=== PATIENT | male | born 1945 | race Caucasian/White ===

== ENCOUNTER → 2016-07-20 | Outpatient (REF) | payer MEDICARE, OTHER ==
[~2016-07-20] MED LIST: /TAMS4CA OR; /WARF5TA OR; ACET65TA OR; ALPR1TAB3 OR; AMBI10TA OR; BISO10TA2 OR; CETI10TA OR; DIGO0.126 OR; ENAL10TA2 OR; GLUC1000 OR; LIDO5DIS EXT; OMEP20TA7 OR; OXYC40TA19 OR; OXYC80TA14 OR; PROS5TAB OR; SERT100T OR; SIMV40TA2 OR; VESICARE OR; VITA500C OR
[2016-07-20 20:02] LABS: INR 4.1
== END ==
LOC: M LAB REF 17:55
PROVIDERS: ATTEND Nurse Practitioner Family
DX: Z51.81 Encounter for therapeutic drug level monitoring (principal); Z79.01 Long term (current) use of anticoagulants

== ENCOUNTER → 2016-08-03 | Outpatient (REF) | payer MEDICARE, OTHER | LOC: M LAB REF 16:29 | PROVIDERS: ATTEND Nurse Practitioner Family | DX: I87.311 Chronic venous hypertension (idiopathic) with ulcer of right lower extremity (principal) ==

== ENCOUNTER → 2016-11-01 | Outpatient (CLI) | payer MEDICARE, OTHER ==
[~2016-11-01] MED LIST changes: +E-Z PAQUE 60% w/v SUSP 355ML BOTTLE As Ordered ONE; +E-Z-GAS II EFFERVESCENT PACKET (SODIUM BICARB./CITRIC ACID/SIMETHICONE) As Ordered ONE; +E-Z-HD 98% w/w 340GM SUSP BTL As Ordered ONE; +ISOVUE-370 76% 100ML VIAL (Q9967) As Ordered ONE
--- NOTE | 2016-11-01 09:47 | REP ---
CT NECK WITH CONTRAST: HISTORY: Dysphagia. CONTRAST: Isovue 370, 75 mL. There is calcification of the epiglottis. The naso-, rashid-, and hypopharynx, larynx and subglottic trachea are otherwise normal in appearance. The salivary and thyroid glands are normal. Small lymph nodes less than 1 cm in size are present in the internal jugular chains, posterior triangles, and submandibular areas. Atherosclerotic calcification is present at the carotid bifurcations. Degenerative change is present in the cervical spine. The lung apices are clear. The visualized sinuses are clear. IMPRESSION: There is no neck mass or adenopathy. Signed by Shivam Gastelum MD 11/01/2016 09:50 A
--- NOTE | 2016-11-01 17:25 | REP ---
ESOPHAGRAM, AIR CONTRAST: The procedure was performed under the direct supervision of Dr. Carter. A single view PA chest x-ray is submitted as a automat car attendant film. There is a unipolar pacemaker in place with the power pack in the left chest. There is cardiomegaly. The lungs are clear. Liquid barium and gas-producing granules were given in the erect position as well as liquid barium in the prone oblique positions in order to perform a double contrast esophagram examination. The oral and pharyngeal stages of deglutition are unremarkable. During esophageal transport there are tertiary waves demonstrated. There is no esophagitis, stricture, mucosal ring or hiatal hernia. Gastroesophageal reflux is not demonstrated on this examination. IMPRESSION: Esophageal dysmotility, otherwise unremarkable double contrast esophagram examination. 1 minute and 15 seconds of fluoroscopy time was utilized for this procedure. Reviewed by GABY Morton 11/02/2016 04:48 PEdited and Signed by Jaspal Carter MD 11/02/2016 05:10 P
== END ==
LOC: M RAD 08:30
PROVIDERS: ATTEND Otolaryngology
DX: R07.0 Pain in throat (principal); R13.10 Dysphagia, unspecified; K22.4 Dyskinesia of esophagus
CPT/HCPCS: 70491; 74220; Q9967

== ENCOUNTER → 2016-12-23 | Outpatient (REF) | payer MEDICARE, OTHER ==
[~2016-12-23] MED LIST changes: -E-Z PAQUE 60% w/v SUSP 355ML BOTTLE As Ordered ONE; -E-Z-GAS II EFFERVESCENT PACKET (SODIUM BICARB./CITRIC ACID/SIMETHICONE) As Ordered ONE; -E-Z-HD 98% w/w 340GM SUSP BTL As Ordered ONE; -ISOVUE-370 76% 100ML VIAL (Q9967) As Ordered ONE
[2016-12-23 13:49] LABS: BASO % 0.4 % (0.0-1.0); EOS # 0.3 K/mm3 (0.0-0.50); EOS % 3.8 % (0.0-3.0); LARGE UNSTAINED CELL # 0.1 K/mm3 (0.0-0.4); LYMPH # 1.6 K/mm3 (1.5-4.5); LYMPH % 19.1 % (24.0-44.0); MEAN CORPUSCULAR HEMOGLOBIN 29.9 pg (27.0-33.0); MEAN CORPUSCULAR HGB CONC 32.4 g/dl (32.0-36.5); MEAN CORPUSCULAR VOLUME 92.4 fl (80.0-96.0); MONO # 0.4 K/mm3 (0.0-0.8); MONO % 5.1 % (0.0-5.0); NEUTROPHILS # 5.6 K/mm3 (1.8-7.7); NEUTROPHILS % 70.7 % (36.0-66.0); PLATELET COUNT, AUTOMATED 167 k/mm3 (150-450); RED CELL DISTRIBUTION WIDTH 14.4 % (11.5-14.5); WHITE BLOOD COUNT 7.9 K/mm3 (4.0-10.0)
[2016-12-23 14:11] LABS: ERYTHROCYTE SEDIMENTATION RATE 25 mm/hr (0-20)
[2016-12-23 15:00] LABS: ANION GAP 5 MEQ/L (8-16); BLOOD UREA NITROGEN 23 MG/DL (7-18); CALCIUM LEVEL 8.5 MG/DL (8.8-10.2); CARBON DIOXIDE LEVEL 34 MEQ/L (21-32); CHLORIDE LEVEL 100 MEQ/L (98-107); CREATININE FOR GFR 0.79 MG/DL (0.70-1.30); GLOMERULAR FILTRATION RATE > 60.0 (>42); GLUCOSE, FASTING 144 MG/DL (83-110); POTASSIUM SERUM 4.5 MEQ/L (3.5-5.1); SODIUM LEVEL 139 MEQ/L (136-145)
[2016-12-23 15:01] LABS: ALBUMIN 3.9 GM/DL (3.2-5.2); ALKALINE PHOSPHATASE 62 U/L (45-117); ALT/SGPT 23 U/L (12-78); AST/SGOT 16 U/L (15-37); BILIRUBIN,TOTAL 0.4 MG/DL (0.2-1.0); TOTAL PROTEIN 6.9 GM/DL (6.4-8.2)
== END ==
LOC: M LABNEURO 13:25
PROVIDERS: ATTEND Psychiatry & Neurology Neurology
DX: R51 Headache (principal); Z79.899 Other long term (current) drug therapy

== ENCOUNTER → 2017-06-15 | Outpatient (CLI) | payer MEDICARE, OTHER ==
--- NOTE | 2017-06-15 10:02 | REP ---
CT LUMBAR SPINE WITHOUT CONTRAST: HISTORY: Back pain. COMPARISON: 12/10/2011 A diffuse disc bulge is present at the L1-2 level. There is minimal compression of the thecal sac. There is hypertrophy of the posterior articulating facets. The L1 nerves exit the neural foramina without compression. A diffuse disc bulge is present at the L2-3 level. There is hypertrophy of ligamenta flava and posterior articulating facets. These findings produce moderate central canal stenosis. There is compression of the right L2 nerve in the neural foramen. The left L2 nerve exits the neural foramen without compression. A laminectomy defect is present. The patient is status post L3 to L5 posterior spinal fusion and L3-4 laminectomy. Metal rods and pedicle screws are present. A diffuse disc bulge is present at the L3-4 level. There is hypertrophy of the ligamenta flava and posterior articulating facets. These findings produce moderate central canal stenosis. There is compression of the right L3 nerve in the neural foramen. The left L3 nerve exits the neural foramen without compression. A diffuse disc bulge is present at the L4-5 level. There is hypertrophy of the ligamenta flava and posterior articulating facets. There are 10 mm of grade 1 spondylolisthesis of L4 on L5. These findings produce mild central canal stenosis. There is compression of the L4 nerves in the neural foramina. A laminectomy defect is present. A diffuse disc bulge is present at the L5-S1 level. There is minimal compression of the thecal sac. There is hypertrophy of the posterior articulating facets. There is compression of the L5 nerves in the neural foramina. The L2-3 through L5-S1 intervertebral discs are decreased in height. Vacuum phenomenon is present at the L4-5 and L5-S1 levels. These findings are consistent with disc degeneration. There is scoliosis convex to the left. IMPRESSION: 1. The patient is status post L3 to L5 posterior spinal fusion and L2 to L4 laminectomy. 2. Diffuse disc bulge at the L1-2 level with minimal thecal sac compression. 3. Moderate central canal stenosis at the L2-3 level secondary to disc bulge, ligamentous and facet hypertrophy. 4. Moderate central canal stenosis at the L3-4 level secondary to disc bulge, ligamentous and facet hypertrophy. There is compression of the right L3 nerve in the neural foramen. 5. Mild central canal stenosis at the L4-5 level secondary to disc bulge, ligamentous and facet hypertrophy and grade 1 spondylolisthesis. There is compression of the L4 nerves in the neural foramina. 6. Diffuse disc bulge at the L5-S1 level with minimal thecal sac compression. There is compression of the L5 nerves in the neural foramina. There is no significant change compared to the previous study. Signed by Shivam Gastelum MD 06/15/2017 10:07 A
== END ==
LOC: M RAD 09:00
PROVIDERS: ATTEND Orthopaedic Surgery
DX: M54.9 Dorsalgia, unspecified (principal)

== ENCOUNTER 2017-07-04 09:06 | Inpatient (IN) | payer MEDICARE, OTHER ==
[~2017-07-04] VITALS: Ht 188 cm; Wt 109.9 kg
[~2017-07-04 09:06] MED LIST changes: +LIDOCAINE 5% (LIDODERM) PATCH TD SCH
[2017-07-04] MEDS ORDERED: LEVO75TA4 PO (09:39)
[2017-07-04] MEDS ORDERED: CRES10TA32 PO ×2 (09:39→11:01)
[2017-07-04] MEDS ORDERED: LEVO10VL IM (09:39)
[2017-07-04] MEDS ORDERED: CODE30TA3 PO (09:39)
[2017-07-04] MEDS ORDERED: TORS20TA2 PO ×2 (09:39→11:19)
[2017-07-04] MEDS ORDERED: OXYB10TA PO ×2 (09:39→11:19)
[2017-07-04] MEDS ORDERED: ACETAMINOPHEN 325 MG TAB PO ONE (09:45)
[2017-07-04 09:55] LABS: BASO % 0.2 % (0.0-1.0); EOS # 0.1 10^3/uL (0.0-0.50); EOS % 0.8 % (0.0-3.0); IMMATURE GRANULOCYTE % 0.5 % (0-0); LYMPH # 0.7 10^3/uL (1.5-4.5); LYMPH % 5.3 % (24.0-44.0); MEAN CORPUSCULAR HEMOGLOBIN 30.7 pg (27.0-33.0); MEAN CORPUSCULAR HGB CONC 33.2 g/dl (32.0-36.5); MEAN CORPUSCULAR VOLUME 92.4 fl (80.0-96.0); MONO # 0.7 10^3/uL (0.0-0.8); MONO % 5.8 % (0.0-5.0); NEUTROPHILS # 10.8 10^3/uL (1.8-7.7); NEUTROPHILS % 87.4 % (36.0-66.0); PLATELET COUNT, AUTOMATED 123 10^3/uL (150-450); WHITE BLOOD COUNT 12.3 10^3/uL (4.0-10.0)
[2017-07-04 10:04] LABS: INR 1.83
[2017-07-04 10:08] LABS: VENOUS BASE EXCESS 2.3 (-2.0-2.0); VENOUS O2 SATURATION 74.3 % (60.0-80.0); VENOUS PARTIAL PRESSURE CO2 46.8 mmHg (38.0-50.0); VENOUS PARTIAL PRESSURE O2 38.2 mmHg (30.0-50.0); VENOUS STANDARD HCO3 25.9 MEQ/L; VENOUS TOTAL CO2 29.3 MEQ/L (24.0-28.0)
[2017-07-04 10:26] LABS: ALBUMIN 3.6 GM/DL (3.2-5.2); ALBUMIN/GLOBULIN RATIO 1.09 (1.00-1.93); ALKALINE PHOSPHATASE 57 U/L (45-117); ALT/SGPT 23 U/L (12-78); ANION GAP 8 MEQ/L (8-16); AST/SGOT 19 U/L (7-37); BILIRUBIN,DIRECT 0.2 MG/DL (0.0-0.2); BILIRUBIN,TOTAL 0.7 MG/DL (0.2-1.0); BLOOD UREA NITROGEN 18 MG/DL (7-18); CALCIUM LEVEL 8.9 MG/DL (8.8-10.2); CARBON DIOXIDE LEVEL 29 MEQ/L (21-32); CHLORIDE LEVEL 101 MEQ/L (98-107); CREATININE FOR GFR 0.76 MG/DL (0.70-1.30); GLOMERULAR FILTRATION RATE > 60.0 (>42); GLUCOSE, FASTING 110 MG/DL (83-110); POTASSIUM SERUM 3.7 MEQ/L (3.5-5.1); SODIUM LEVEL 138 MEQ/L (136-145); TOTAL PROTEIN 6.9 GM/DL (6.4-8.2)
--- NOTE | 2017-07-04 10:28 | REP ---
PORTABLE CHEST: AP portable view of the chest is performed. There is streaky right basilar atelectasis/infiltrate. There is mild calcification of the thoracic aorta. There is a left single lead pacemaker. Signed by Srinath Hutton MD 07/04/2017 05:55 P
[2017-07-04 10:33] LABS: DIGOXIN LEVEL 0.2 NG/ML (0.5-2.0)
[2017-07-04] MEDS ORDERED: ACETAMINOPH W/CODEINE #3 TAB UD PO ONE (10:45)
[2017-07-04] MEDS ORDERED: MOXIFLOXACIN HCL 400 MG in APPROPRIATE DILUENT 1 EA IV ONE (10:45)
[2017-07-04] MEDS ORDERED: XANA0.5T PO (11:00)
[2017-07-04] MEDS ORDERED: DOXY100T16 PO (11:00)
[2017-07-04] MEDS ORDERED: WARF-23 PO (11:00)
[2017-07-04] MEDS ORDERED: SYNT75TA PO (11:01)
[2017-07-04] MEDS ORDERED: FLOM5CAP PO (11:01)
[2017-07-04] MEDS ORDERED: OXYC1TAB23 PO (11:01)
[2017-07-04] MEDS ORDERED: XANA1TAB PO (11:01)
[2017-07-04] MEDS ORDERED: METF750T PO (11:01)
[2017-07-04] MEDS ORDERED: BISO5TAB5 PO (11:01)
[2017-07-04] MEDS ORDERED: ALPRAZolam 0.25 MG TAB PO ONE (11:15)
[2017-07-04] MEDS ORDERED: VITA100066 PO (11:19)
[2017-07-04] MEDS ORDERED: ZONI50CA3 PO (11:19)
[2017-07-04] MEDS ORDERED: SERT-138 PO (11:19)
[2017-07-04] MEDS ORDERED: LIDO1PAD TD (11:19)
[2017-07-04] MEDS ORDERED: FINA5TAB2 PO (11:19)
[2017-07-04] MEDS ORDERED: DICY20TA PO (11:19)
[2017-07-04] MEDS ORDERED: OXYC-405 PO ×2 (11:19→12:03)
[2017-07-04] MEDS ORDERED: VITMTA PO (11:19)
[2017-07-04] MEDS ORDERED: TYLE325T5 PO (11:19)
[2017-07-04] MEDS ORDERED: MIRT15SOTA PO (11:19)
[2017-07-04] MEDS ORDERED: ENAL2.5T PO (11:19)
[2017-07-04] MEDS ORDERED: VITA10006 PO (11:19)
[2017-07-04] MEDS ORDERED: CETI10TA PO (11:19)
[2017-07-04] MEDS ORDERED: OMEP20CA3 PO (11:20)
[2017-07-04] MEDS ORDERED: ACETAMINOPHEN TAB 650MG DOSE (2X325MG) PO PRN (12:15)
[2017-07-04] MEDS ORDERED: ONDANSETRON 4MG/2ML VIAL (J2405) IV PRN (12:30)
[2017-07-04 12:55] LABS: ERYTHROCYTE SEDIMENTATION RATE 45 mm/hr (0-20)
--- NOTE | 2017-07-04 13:23 | HPE ---
DATE OF ADMISSION: 07/04/2017 PRIMARY CARE PHYSICIAN: Dimitri Keller MD VIDEO PRODUCER: Gerson Peñaloza MD NEUROLOGIST: Isac Alvarez MD PROCUREMENT INSPECTOR: Bert Dejesus MD CHIEF COMPLAINT: Fevers and cough. HISTORY OF PRESENT ILLNESS: The patient is a 71-year-old man who for the last several days has had progressively worsening fevers, chills, associated with cough with increased sputum production. He did present to an urgent care on Tuesday and was started on doxycycline without any significant improvement in his symptoms which prompted him to present to the hospital. This morning he had a high temperature at home and was increasingly confused as per his . At the present time, he is less confused. He is awake, alert and oriented times three and improved as per himself and his . He denies recent travel or other changes in his medications. PAST MEDICAL HISTORY: Atrial fibrillation status post pacemaker placement. Depression. [id number] diabetes mellitus. Obstructive sleep apnea (GRETTA) noncompliant with CPAP, but does use oxygen via nasal cannula at night. Dyslipidemia. Hypertension. Congestive heart failure (CHF). Benign prostatic hypertrophy (BPH). Overactive bladder. Dyslipidemia. Significant anxiety. Chronic osteoarthritis (OA) pain in the spine. Insomnia. Migraines headaches. Hypertension. Hypothyroidism. HOME MEDICATIONS: - doxycycline 100 mg by mouth twice a day, started on Tuesday - metformin 1500 mg every evening - torsemide 20 mg daily - dicyclomine 20 mg three times a day - enalapril 2.5 mg at bedtime - Xanax extended release 1 mg by mouth daily - Tylenol 650 mg every 4 hours as needed pain or fever - Xanax 0.5 mg every 4 hours as needed anxiety - vitamin C 1 gram daily - bisoprolol 10 mg daily - cetirizine 10 mg daily - vitamin D 1000 units daily - finasteride 5 mg daily - levothyroxine 75 mcg daily - lidocaine 5% patch three patches transdermally daily - mirtazapine 15 mg at bedtime - multivitamin one tablet daily - omeprazole 20 mg daily - oxybutynin extended release 10 mg daily - oxycodone extended release 40 mg twice a day and 80 mg in the morning - oxycodone/acetaminophen 5/325 two tablets every 6 hours as needed for pain - Crestor 10 mg at bedtime - sertraline 200 mg daily - Flomax 0.4 mg by mouth twice a day - Coumadin 5 mg daily - zonisamide 100 mg at bedtime ALLERGIES: 1. MORPHINE. 2. PENICILLIN. 3. PENICILLIN CROSS REACTORS. PAST SURGICAL HISTORY: 1. Surgery related to his osteoarthritis (OA) of the spine. 2. Bilateral hip arthroplasty. 3. Lumbar fusions. 4. Pacer placement. SOCIAL HISTORY: He denies alcohol or tobacco. He lives with his , daughter and granddaughter. FAMILY HISTORY: Noncontributory. REVIEW OF SYSTEMS: Negative other than the history of present illness. PHYSICAL EXAMINATION: Temperature T-max 102.3, pulse 137, atrial fibrillation, respiratory rate 20, blood pressure 142/79, oxygen saturation 98% on 2 liters nasal cannula. He is reportedly 88% on room air with no baseline oxygen requirement in general. He is a tired, elderly man laying face down on the stretcher. He does not appear in acute distress but does appear fatigued. HEENT: Cranial nerves II through XII are grossly intact. He has moist mucous membranes. No appreciable elevation of CVP. CARDIOVASCULAR EXAM: S1 and S2 is irregularly irregular and he is tachycardic. RESPIRATORY EXAM: He has rhonchi with scattered rales throughout. ABDOMINAL EXAM: Obese. Bowel sounds are present. The abdomen is soft. EXTREMITIES: No clubbing, cyanosis, or edema. LABORATORY STUDIES: WBC 12.3, hemoglobin 13.4, platelet count 123. Chemistry panel: Sodium 138, potassium 3.7, chloride 101, bicarb 29, BUN 18, creatinine 0.7, lactic acid 1.5. Liver function tests within normal limits. One set of cardiac enzymes is negative. BNP is slightly elevated at 1270, TSH within normal limits. Digoxin level is 0.2, INR is 1.8. Blood cultures have been drawn and are pending. Influenza swab is negative. IMAGING: The patient did have a chest x-ray which revealed slight right basilar atelectasis/infiltrate. ASSESSMENT/PLAN: This is a 71-year-old man presenting with fever and cough with radiographic findings of an infiltrate concerning for community acquired pneumonia. 1. Community acquired pneumonia. Given also the location of the right basilar infiltrate, there is some evidence for possible aspiration pneumonia given that the patient did have an episode of confusion. He was previously on doxycycline and has been transitioned to moxifloxacin which we will continue for now. I will also check a respiratory PCR panel and provide him with gentle IV fluid hydration. We will hold his home diuretics and nephrotoxic agents. The patient did have an venous blood gas which was fairly unremarkable. 2. Atrial fibrillation with rapid ventricular response (RVR). Given that he has a normal lactic acid, he does not have increased work of breathing, and does not severe sepsis and his rapid ventricular response (RVR) is likely related to uncontrolled atrial fibrillation. He did not take his bisoprolol this morning. I will provide him with a dose of it at this time. We will monitor him in the progressive care unit and trend his cardiac enzymes as well as rate control. He follows with Dr. Dejesus and he recently had a stress test completed. I will obtain recent clinic notes from Dr. Dejesus's office. The patient is anticoagulated with Coumadin. He is subtherapeutic. We will provide him 5 mg daily and monitor. He will be on antibiotics so I suspect his INR will rise. 3. Chronic pain of the spine related to osteoarthritis (OA). Continue with his OxyContin/Roxicodone regimen with lidocaine patches. This strongly controls his symptoms at home. We will hold for sedation while he is in the hospital. 4. Insomnia. Continue with mirtazapine. 5. Migraines headaches. Continue the zonisamide. 6. Anxiety. Continue with Xanax, Zoloft. 7. Hypothyroidism. Continue with Synthroid. 8. Overactive bladder. Continue Ditropan. 9. Gastroesophageal reflux disease (GERD). Continue with omeprazole. 10. Benign prostatic hypertrophy (BPH). Continue with Proscar and Flomax. 11. Vitamin D deficiency. Continue with supplementation. 12. Dyslipidemia. Continue with Crestor. 13. Hypertension. We are holding his CONCEPCION inhibitor. He is being provided beta-robin while we are attempting to rate control him. Will hold off on any further agents. We are also holding his diuretic. 14. Deep vein thrombosis (DVT) prophylaxis. He is on Coumadin. DISPOSITION: Patient is admitted to the progressive care unit. Continue to follow this patient closely.
[2017-07-04] MEDS ORDERED: oxyCODONE 40 MG CR TAB PO SCH (14:00)
[2017-07-04 16:00] VITALS: BP_SYST 115; BP_SYST 129; BP_DIAS 61; BP_DIAS 70
[2017-07-04] MEDS: LEVOTHYROXINE 75MCG TABLET (0.075MG) PO SCH (16:19)
[2017-07-04] MEDS: oxyCODONE 20 MG CR TAB PO SCH (16:20)
[2017-07-04] MEDS: FINASTERIDE 5 MG TAB PO SCH (16:21)
[2017-07-04] MEDS: oxyBUTYnin *DITROPAN XL* 5 MG TABCR PO SCH (16:21)
[2017-07-04] MEDS: OMEPRAZOLE 20 MG CAP PO SCH (16:21)
[2017-07-04] MEDS: SERTRALINE 100 MG TAB PO SCH (16:22)
[2017-07-04] MEDS: MULTIVITAMINS/MINERALS THERAP 1 TAB PO SCH (16:22)
[2017-07-04] MEDS: VITAMIN D 1,000 INTERNATIONAL UNITS TABLET PO SCH (16:22)
[2017-07-04] MEDS: ALPRAZolam 0.25 MG TAB PO PRN ×2 (16:22→21:50)
[2017-07-04] MEDS: CETIRIZINE (ZyrTEC) 10 MG TAB PO SCH (16:23)
[2017-07-04] MEDS: ASCORBIC ACID 500 MG TAB PO SCH (16:23)
[2017-07-04] MEDS: NS 1,000 ML IV SCH (16:24)
[2017-07-04] MEDS: WARFARIN SOD 5 MG TAB PO SCH (16:33)
[2017-07-04] MEDS: BISOPROLOL FUMARATE 5 MG TAB PO SCH (16:33)
[2017-07-04 20:00] VITALS: BP 123/79
[2017-07-04] MEDS ORDERED: **NOTE PATIENT COMMENT** MISC XX SCH (21:00)
[2017-07-04] MEDS: ROSUVASTATIN 10 MG TAB (CRESTOR) PO SCH (21:45)
[2017-07-04] MEDS: TAMSULOSIN 0.4 MG CAP PO SCH (21:45)
[2017-07-04] MEDS: MIRTAZAPINE 15 MG ***SOLTAB PO SCH (21:45)
[2017-07-04] MEDS: ZONISAMIDE 50 MG CAP (ZONEGRAN) PO SCH (21:46)
[2017-07-04 23:59] VITALS: BP 108/65
[2017-07-05 04:00] VITALS: BP 100/71
[2017-07-05] MEDS: **NOTE PATIENT COMMENT** MISC XX SCH (04:00)
[2017-07-05 05:47] LABS: MEAN CORPUSCULAR HEMOGLOBIN 30.8 pg (27.0-33.0); MEAN CORPUSCULAR HGB CONC 33.3 g/dl (32.0-36.5); MEAN CORPUSCULAR VOLUME 92.5 fl (80.0-96.0); PLATELET COUNT, AUTOMATED 126 10^3/uL (150-450); RED CELL DISTRIBUTION WIDTH 14.1 % (11.5-14.5); WHITE BLOOD COUNT 6.6 10^3/uL (4.0-10.0)
[2017-07-05 05:55] LABS: ANION GAP 7 MEQ/L (8-16); BLOOD UREA NITROGEN 16 MG/DL (7-18); CALCIUM LEVEL 8.6 MG/DL (8.8-10.2); CARBON DIOXIDE LEVEL 28 MEQ/L (21-32); CHLORIDE LEVEL 106 MEQ/L (98-107); CREATININE FOR GFR 0.69 MG/DL (0.70-1.30); GLOMERULAR FILTRATION RATE > 60.0 (>42); GLUCOSE, FASTING 106 MG/DL (83-110); POTASSIUM SERUM 3.7 MEQ/L (3.5-5.1); SODIUM LEVEL 141 MEQ/L (136-145)
[2017-07-05 05:59] LABS: INR 2.25
[2017-07-05] MEDS: ALPRAZolam 0.25 MG TAB PO PRN ×4 (06:17→20:45)
[2017-07-05] MEDS: PERCOCET 5MG/325MG TAB PO PRN ×2 (06:17→16:30)
[2017-07-05] MEDS: LEVOTHYROXINE 75MCG TABLET (0.075MG) PO SCH (06:17)
--- NOTE | 2017-07-05 06:18 | ECGEPIP ---
Stationary ECG Study [facility] Test Date: 2017-07-04 Pat Name: JOSUÉ FABIAN Department: Room: [place] [address] Gender: M Preconstruction Manager: william : 1945 Requested By: IJEOMA GARZA Order Number: [id number] Reading MD: Elliot Boyer Measurements Intervals [place] Rate: 112 P: AL: 0 QRS: 42 QRSD: 104 T: 47 QT: 329 QTc: 450 Interpretive Statements ATRIAL FIBRILLATION WITH RAPID VENTRICULAR RESPONSE ANTEROSEPTAL MYOCARDIAL INFARCTION, OF INDETERMINATE AGE Comparison tracing not on file Electronically Signed On 07-05-2017 6:17:58 EST by Elliot Boyer
[2017-07-05 07:50] VITALS: BP 108/62
[2017-07-05] MEDS: NS 1,000 ML IV SCH ×2 (08:00→23:15)
[2017-07-05] MEDS: oxyCODONE 20 MG CR TAB PO SCH ×3 (08:31→20:45)
[2017-07-05] MEDS: BISOPROLOL FUMARATE 5 MG TAB PO SCH (08:32)
[2017-07-05] MEDS: SERTRALINE 100 MG TAB PO SCH (08:32)
[2017-07-05] MEDS: VITAMIN D 1,000 INTERNATIONAL UNITS TABLET PO SCH (08:32)
[2017-07-05] MEDS: CETIRIZINE (ZyrTEC) 10 MG TAB PO SCH (08:32)
[2017-07-05] MEDS: ASCORBIC ACID 500 MG TAB PO SCH (08:32)
[2017-07-05] MEDS: FINASTERIDE 5 MG TAB PO SCH (08:32)
[2017-07-05] MEDS: TAMSULOSIN 0.4 MG CAP PO SCH ×2 (08:33→20:45)
[2017-07-05] MEDS: OMEPRAZOLE 20 MG CAP PO SCH (08:33)
[2017-07-05] MEDS: MULTIVITAMINS/MINERALS THERAP 1 TAB PO SCH (08:33)
[2017-07-05] MEDS: oxyBUTYnin *DITROPAN XL* 5 MG TABCR PO SCH (08:33)
[2017-07-05] MEDS ORDERED: BISOPROLOL FUMARATE 5 MG TAB PO SCH (09:00)
[2017-07-05] MEDS: MOXIFLOXACIN HCL 400 MG in APPROPRIATE DILUENT 1 EA IV SCH (10:52)
[2017-07-05 12:00] VITALS: BP 141/76
--- NOTE | 2017-07-05 12:44 | IPNPDOC ---
Date Seen The patient was seen on 07/05/17. Progress Note SUBJECTIVE: Patient is a 71 yo male, no overnight issues. Feels breathing better than yesterday, but still occasionally SOB, CASTORENA and productive sputum. No f/c/r, n/v/d, CP. Tolerating PO intake. OBJECTIVE PHYSICAL EXAMINATION: VITAL SIGNS: Please see below. GENERAL: NAD, A&OX3, Pleasant HEENT: PERRLA, throat clear, neck supple, no JVD CARDIOVASCULAR: RRR RESPIRATORY: CTA Bilaterally ABDOMINAL: soft, NT/ND normoactive bowel sounds EXTREMITIES: no edema/no calf tenderness NEUROLOGICAL: CN'S II-XII grossly intact PSYCHOLOGICAL: negative LABORATORY DATA: Please see below. MICROBIOLOGY: Please see below. DVT prophylaxis ordered?: [yes/coumadin] ASSESSMENT AND PLAN: This is a 71 yo male admitted for community acquired pneumonia and acute hypoxic respiratory failure. Showing some mild improvement in symptoms today. PROBLEMS: 1. Community acquired pneumonia. RLL pneumonia, tolerating PO intake without signs of aspiration. ? Failed outpatient therapy on Doxy, continue with Avelox. Respiratory panel negative, Influenza A&B negative, Blood cultures negative so far. No signs of sepsis, will continue with currrent treatment plan for another 24- 48 hrs. 2. Atrial fibrillation with rapid ventricular response (RVR). Better rate control with treatment of underlying disease. INR is therapeutic. Will continue to monitor. 3. Chronic pain of the spine related to osteoarthritis (OA). Continue with his OxyContin/Roxicodone regimen with lidocaine patches. This strongly controls his symptoms at home. We will hold for sedation while he is in the hospital. 4. Insomnia. Continue with mirtazapine. 5. Migraines headaches. Continue the zonisamide. 6. Anxiety/Depression. Continue with Xanax, Zoloft. No other issues. 7. Hypothyroidism. Continue with Synthroid. 8. Overactive bladder. Continue Ditropan. 9. Gastroesophageal reflux disease (GERD). Continue with omeprazole. 10. Benign prostatic hypertrophy (BPH). Continue with Proscar and Flomax. 11. Vitamin D deficiency. Continue with supplementation. 12. Dyslipidemia. Continue with Crestor. 13. Hypertension. We are holding his CONCEPCION inhibitor and diuretic (likely resume at time of discharge). He is being provided beta-robin and showing better rate control. 14. Deep vein thrombosis (DVT) prophylaxis. He is on Coumadin. DISPOSITION: Will monitor on telemetry another 24-48 hrs, then likely discharge home by or tuesday. VS, I&O, 24H, Shaggy Vital Signs/I&O Vital Signs Date Time Temp Pulse Resp B/P (MAP) Pulse Ox O2 Delivery O2 Flow Rate FiO2 07/05/17 12:00 96.6 88 19 141/76 (97) 98 Nasal Cannula 2.0 I&O- Last 24 Hours up to 6 AM 07/06/17 06:00 Intake Total 855 ml Output Total 400 ml Balance 455 ml Laboratory Data 24H LABS Laboratory Tests 2 07/04/17 15:42: Troponin I < 0.02 07/04/17 22:06: Troponin I < 0.02 07/05/17 05:16: Prothrombin Time 25.7H, Prothromb Time International Ratio 2.25, Anion Gap 7L, Glomerular Filtration Rate > 60.0, Blood Urea Nitrogen 16, Creatinine 0.69L, Sodium Level 141, Potassium Level 3.7, Chloride Level 106, Carbon Dioxide Level 28, Calcium Level 8.6L 07/05/17 05:17: Nucleated Red Blood Cells % (auto) 0.3H CBC/BMP Laboratory Tests 07/05/17 05:16 Calcium Level 8.6 L 07/05/17 05:17 Red Blood Count 3.89 L, Mean Corpuscular Volume 92.5, Mean Corpuscular Hemoglobin 30.8, Mean Corpuscular Hemoglobin Concent 33.3, Red Cell Distribution Width 14.1 Microbiology Microbiology 07/04/17 Blood Culture - Preliminary, Resulted No growth after 24 hours . All specim... 07/04/17 Blood Culture - Preliminary, Resulted No growth after 24 hours . All specim... 07/04/17 Respiratory Virus Panel (PCR) ([facility]), Received Pending 07/04/17 Influenza Virus Type A Antigen - Final, Complete 07/04/17 Influenza Virus Type B Antigen - Final, Complete 07/04/17 Gram Stain - Final, Resulted 07/04/17 Sputum Culture, Resulted Pending LAUREN YANEZ DO Jul 05, 2017 12:44
[2017-07-05 16:00] VITALS: BP 123/85
[2017-07-05] MEDS: WARFARIN SOD 5 MG TAB PO SCH (16:23)
[2017-07-05] MEDS: LIDOCAINE 5% (LIDODERM) PATCH TD SCH (16:26)
[2017-07-05 20:00] VITALS: BP 125/82
[2017-07-05] MEDS: ZONISAMIDE 50 MG CAP (ZONEGRAN) PO SCH (20:44)
[2017-07-05] MEDS: MIRTAZAPINE 15 MG ***SOLTAB PO SCH (20:45)
[2017-07-05] MEDS: ROSUVASTATIN 10 MG TAB (CRESTOR) PO SCH (20:45)
[2017-07-05 23:59] VITALS: BP 133/82
[2017-07-06] MEDS: PERCOCET 5MG/325MG TAB PO PRN (03:33)
[2017-07-06] MEDS: **NOTE PATIENT COMMENT** MISC XX SCH (03:37)
[2017-07-06] MEDS: ALPRAZolam 0.25 MG TAB PO PRN ×4 (03:37→22:06)
[2017-07-06 04:00] VITALS: BP 139/83
[2017-07-06] MEDS: LEVOTHYROXINE 75MCG TABLET (0.075MG) PO SCH (05:33)
[2017-07-06 06:01] LABS: MEAN CORPUSCULAR HEMOGLOBIN 30.2 pg (27.0-33.0); MEAN CORPUSCULAR HGB CONC 32.7 g/dl (32.0-36.5); MEAN CORPUSCULAR VOLUME 92.4 fl (80.0-96.0); PLATELET COUNT, AUTOMATED 120 10^3/uL (150-450); WHITE BLOOD COUNT 4.6 10^3/uL (4.0-10.0)
[2017-07-06 06:15] LABS: INR 2.32
[2017-07-06 06:26] LABS: ANION GAP 7 MEQ/L (8-16); BLOOD UREA NITROGEN 19 MG/DL (7-18); CALCIUM LEVEL 7.9 MG/DL (8.8-10.2); CARBON DIOXIDE LEVEL 26 MEQ/L (21-32); CHLORIDE LEVEL 109 MEQ/L (98-107); CREATININE FOR GFR 0.63 MG/DL (0.70-1.30); GLOMERULAR FILTRATION RATE > 60.0 (>42); GLUCOSE, FASTING 147 MG/DL (83-110); POTASSIUM SERUM 3.9 MEQ/L (3.5-5.1); SODIUM LEVEL 142 MEQ/L (136-145)
[2017-07-06 08:00] VITALS: BP 128/74
[2017-07-06] MEDS: IPRATROPIUM 0.5MG/ALBUTEROL 2.5MG INH SOL UD 3ML (DUONEB)(J7620) NEB SCH ×4 (08:00→20:20)
[2017-07-06] MEDS: NS 1,000 ML IV SCH (08:08)
[2017-07-06] MEDS ORDERED: ALBUTEROL SULFATE 2.5 MG/0.5 ML INH NEB SOLN NEB PRN (08:15)
[2017-07-06] MEDS: ASCORBIC ACID 500 MG TAB PO SCH (08:38)
[2017-07-06] MEDS: BISOPROLOL FUMARATE 5 MG TAB PO SCH (08:38)
[2017-07-06] MEDS: MULTIVITAMINS/MINERALS THERAP 1 TAB PO SCH (08:38)
[2017-07-06] MEDS: VITAMIN D 1,000 INTERNATIONAL UNITS TABLET PO SCH (08:38)
[2017-07-06] MEDS: oxyCODONE 20 MG CR TAB PO SCH ×3 (08:39→20:50)
[2017-07-06] MEDS: SERTRALINE 100 MG TAB PO SCH (08:39)
[2017-07-06] MEDS: OMEPRAZOLE 20 MG CAP PO SCH (08:40)
[2017-07-06] MEDS: FINASTERIDE 5 MG TAB PO SCH (08:40)
[2017-07-06] MEDS: TAMSULOSIN 0.4 MG CAP PO SCH ×2 (08:40→20:47)
[2017-07-06] MEDS: oxyBUTYnin *DITROPAN XL* 5 MG TABCR PO SCH (08:40)
[2017-07-06] MEDS: CETIRIZINE (ZyrTEC) 10 MG TAB PO SCH (08:40)
[2017-07-06 12:00] VITALS: BP 119/67
[2017-07-06] MEDS: MOXIFLOXACIN HCL 400 MG in APPROPRIATE DILUENT 1 EA IV SCH (12:17)
--- NOTE | 2017-07-06 13:50 | IPNPDOC ---
Date Seen The patient was seen on 07/06/17. Progress Note SUBJECTIVE: Patient is a 71 yo male, no overnight issues. Feels breathing better than yesterday, but still occasionally SOB, CASTORENA and productive sputum. No f/c/r, n/v/d, CP. Tolerating PO intake. OBJECTIVE PHYSICAL EXAMINATION: VITAL SIGNS: Please see below. GENERAL: NAD, A&OX3, Pleasant HEENT: PERRLA, throat clear, neck supple, no JVD CARDIOVASCULAR: RRR RESPIRATORY: Occasional wheeze that mostly clears with cough ABDOMINAL: soft, NT/ND normoactive bowel sounds EXTREMITIES: no edema/no calf tenderness NEUROLOGICAL: CN'S II-XII grossly intact PSYCHOLOGICAL: negative LABORATORY DATA: Please see below. MICROBIOLOGY: Please see below. DVT prophylaxis ordered?: yes/Coumadin ASSESSMENT AND PLAN: This is a 71 yo male admitted for community acquired pneumonia and acute hypoxic respiratory failure. Showing some mild improvement in symptoms from yesterday. PROBLEMS: 1. Community acquired pneumonia. RLL pneumonia, tolerating PO intake without signs of aspiration. ? Failed outpatient therapy on Doxy, continue with Avelox. Co-infection with HUMAN METAPNEUMOVIRUS (continue symptomatic treatment) Respiratory panel negative, Influenza A&B negative, Blood cultures continue negative so far. No signs of sepsis, will continue with currant treatment plan for another 24hrs. 2. Atrial fibrillation with rapid ventricular response (RVR). Better rate control with treatment of underlying disease. INR is therapeutic. Will continue to monitor. 3. Chronic pain of the spine related to osteoarthritis (OA). Continue with his OxyContin/Roxicodone regimen with lidocaine patches. We will hold for sedation while he is in the hospital. 4. Insomnia. Continue with mirtazapine. 5. Migraines headaches. Continue the zonisamide. 6. Anxiety/Depression. Continue with Xanax, Zoloft. No other issues. 7. Hypothyroidism. Continue with Synthroid. 8. Overactive bladder. Continue Ditropan. 9. Gastroesophageal reflux disease (GERD). Continue with omeprazole. 10. Benign prostatic hypertrophy (BPH). Continue with Proscar and Flomax. 11. Vitamin D deficiency. Continue with supplementation. 12. Dyslipidemia. Continue with Crestor. 13. Hypertension. We are holding his CONCEPCION inhibitor and diuretic (likely resume at time of discharge). He is being provided beta-robin and showing better rate control. 14. Deep vein thrombosis (DVT) prophylaxis. He is therapeutic on Coumadin. DISPOSITION: Will downgrade to MED/SURG with Tele and then likely discharge home tomorrow. VS, I&O, 24H, Fishbone Vital Signs/I&O Vital Signs Date Time Temp Pulse Resp B/P (MAP) Pulse Ox O2 Delivery O2 Flow Rate FiO2 07/06/17 13:19 18 07/06/17 12:00 97.4 88 119/67 (84) 96 Nasal Cannula 2.0 I&O- Last 24 Hours up to 6 AM 07/06/17 06:00 Intake Total 3091 ml Output Total 1800 ml Balance 1291 ml Laboratory Data 24H LABS Laboratory Tests 2 07/06/17 05:35: Nucleated Red Blood Cells % (auto) 0.0, Prothrombin Time 26.3H, Prothromb Time International Ratio 2.32, Anion Gap 7L, Glomerular Filtration Rate > 60.0, Blood Urea Nitrogen 19H, Creatinine 0.63L, Sodium Level 142, Potassium Level 3.9 , Chloride Level 109H, Carbon Dioxide Level 26, Calcium Level 7.9L CBC/BMP Laboratory Tests 07/06/17 05:35 Red Blood Count 3.54 L, Mean Corpuscular Volume 92.4, Mean Corpuscular Hemoglobin 30.2, Mean Corpuscular Hemoglobin Concent 32.7, Red Cell Distribution Width 14.0, Calcium Level 7.9 L Microbiology Microbiology 07/04/17 Blood Culture - Preliminary, Resulted No Growth after 48 hours. All Specime... 07/04/17 Blood Culture - Preliminary, Resulted No Growth after 48 hours. All Specime... 07/04/17 Respiratory Virus Panel (PCR) ([facility]) - Final, Complete Human Metapneumovirus 07/04/17 Influenza Virus Type A Antigen - Final, Complete 07/04/17 Influenza Virus Type B Antigen - Final, Complete 07/04/17 Gram Stain - Final, Resulted 07/04/17 Sputum Culture, Resulted Pending LAUREN YANEZ DO Jul 06, 2017 13:50
[2017-07-06 16:00] VITALS: BP 138/76
[2017-07-06] MEDS: LIDOCAINE 5% (LIDODERM) PATCH TD SCH (16:35)
[2017-07-06] MEDS ORDERED: SLF 3 ML SYR IV PRN (17:45)
[2017-07-06 20:00] VITALS: BP 137/94
[2017-07-06] MEDS: ROSUVASTATIN 10 MG TAB (CRESTOR) PO SCH (20:46)
[2017-07-06] MEDS: MIRTAZAPINE 15 MG ***SOLTAB PO SCH (20:50)
[2017-07-06] MEDS: SLF 3 ML SYR IV SCH (20:51)
[2017-07-06] MEDS: ZONISAMIDE 50 MG CAP (ZONEGRAN) PO SCH (20:51)
[2017-07-06 23:59] VITALS: BP 163/81
[2017-07-07] MEDS: **NOTE PATIENT COMMENT** MISC XX SCH (03:19)
[2017-07-07 04:00] VITALS: BP 109/56
[2017-07-07] MEDS: SLF 3 ML SYR IV SCH (05:05)
[2017-07-07] MEDS: LEVOTHYROXINE 75MCG TABLET (0.075MG) PO SCH (05:05)
[2017-07-07] MEDS: ALPRAZolam 0.25 MG TAB PO PRN ×2 (05:06→10:14)
[2017-07-07 06:40] LABS: MEAN CORPUSCULAR HEMOGLOBIN 30.6 pg (27.0-33.0); MEAN CORPUSCULAR HGB CONC 32.6 g/dl (32.0-36.5); MEAN CORPUSCULAR VOLUME 93.7 fl (80.0-96.0); PLATELET COUNT, AUTOMATED 145 10^3/uL (150-450); RED CELL DISTRIBUTION WIDTH 14.2 % (11.5-14.5); WHITE BLOOD COUNT 4.5 10^3/uL (4.0-10.0)
[2017-07-07 06:49] LABS: ANION GAP 5 MEQ/L (8-16); BLOOD UREA NITROGEN 14 MG/DL (7-18); CALCIUM LEVEL 8.1 MG/DL (8.8-10.2); CARBON DIOXIDE LEVEL 28 MEQ/L (21-32); CHLORIDE LEVEL 111 MEQ/L (98-107); CREATININE FOR GFR 0.68 MG/DL (0.70-1.30); GLOMERULAR FILTRATION RATE > 60.0 (>42); GLUCOSE, FASTING 130 MG/DL (83-110); SODIUM LEVEL 144 MEQ/L (136-145)
[2017-07-07 06:56] LABS: INR 2.18
[2017-07-07] MEDS: IPRATROPIUM 0.5MG/ALBUTEROL 2.5MG INH SOL UD 3ML (DUONEB)(J7620) NEB SCH ×2 (07:12→11:11)
[2017-07-07 08:00] VITALS: BP 139/70
[2017-07-07 08:33] VITALS: BP 115/62
[2017-07-07] MEDS: OMEPRAZOLE 20 MG CAP PO SCH (08:33)
[2017-07-07] MEDS: oxyCODONE 20 MG CR TAB PO SCH (08:33)
[2017-07-07] MEDS: BISOPROLOL FUMARATE 5 MG TAB PO SCH (08:33)
[2017-07-07] MEDS: MULTIVITAMINS/MINERALS THERAP 1 TAB PO SCH (08:34)
[2017-07-07] MEDS: VITAMIN D 1,000 INTERNATIONAL UNITS TABLET PO SCH (08:34)
[2017-07-07] MEDS: oxyBUTYnin *DITROPAN XL* 5 MG TABCR PO SCH (08:34)
[2017-07-07] MEDS: SERTRALINE 100 MG TAB PO SCH (08:34)
[2017-07-07] MEDS: TAMSULOSIN 0.4 MG CAP PO SCH (08:34)
[2017-07-07] MEDS: CETIRIZINE (ZyrTEC) 10 MG TAB PO SCH (08:34)
[2017-07-07] MEDS: ASCORBIC ACID 500 MG TAB PO SCH (08:34)
[2017-07-07] MEDS: FINASTERIDE 5 MG TAB PO SCH (08:34)
[2017-07-07] MEDS ORDERED: AVEL1TAB3 PO (09:41)
--- NOTE | 2017-07-07 12:50 | DS.PDOC ---
Discharge Summary General Date of Admission Jul 04, 2017 at 12:05 Date of Discharge 07/07/2017 Primary Care Physician: Jr Keller Collins Attending Physician: LAUREN YANEZ DO Specialist/Consultants Involve Vocational Rehabilitation Consultant: Gerson Peñaloza M.D. Neurologist: Isac Alvarez M.D. Patron Attendant: Bert Dejesus M.D. Discharge Summary CONSULTS: None PROCEDURES: None COMPLICATIONS: None ADMISSION / DISCHARGE DIAGNOSIS: Acute hypoxic respiratory failure secondary to Community-acquired pneumonia Atrial fibrillation status post pacemaker placement briefly and rapid ventricular response, resolved with therapy Depression. Vki-aflwyff-mcwihqyza diabetes mellitus. Obstructive sleep apnea (GRETTA) noncompliant with CPAP, but does use oxygen via nasal cannula at night. Dyslipidemia. Hypertension. Congestive heart failure (CHF). Benign prostatic hypertrophy (BPH). Overactive bladder. Dyslipidemia. Significant anxiety. Chronic osteoarthritis (OA) pain in the spine. Insomnia. Migraines headaches. Hypertension. Hypothyroidism. BRIEF HOSPITAL COURSE: 71-year-old gentleman presented to the emergency department on 07/04/2017. He had had worsening symptoms of increasing shortness of breath, productive sputum , cough, dyspnea on exertion, chest discomfort, without any substernal chest pain. On the emergency department he was noted to have acute hypoxic respiratory failure, right lower lobe infiltrate, white count was 12.3, rapid heart rate in the 120 to 130 range (needing SIRS criteria). He had been on doxycycline prescribed training by a local urgent care and felt to have failed outpatient therapy. Admitted for IV antibiotics, AcappellA, duo nebs, IV antibiotics. He was never hypotensive. However, he does meet criteria for suspected sepsis, although his lactic acid was 1.5. He was watched on telemetry. His heart rate did improve with treatment. On date of discharge, she was felt to be back to his baseline yet. Still having occasional nonproductive cough. His white count normalized and was felt to be appropriate for discharge. Respiratory Panel was positive for Human Metapneumovirus, but in light of his RLL infiltrate, he was covered with antibiotics. PHYSICAL EXAMINATION ON DISCHARGE: VITAL SIGNS: Please see below. GENERAL: NAD, A&OX3 HEENT: PERRLA, throat clear, neck supple, no JVD CARDIOVASCULAR EXAMINATION: RRR RESPIRATORY EXAMINATION: Expiratory wheeze. Occasional rhonchi bilateral bases. ABDOMINAL EXAMINATION: soft, NT/ND, normoactive bowel sounds EXTREMITIES: no edema no calf tenderness SKIN: intact NEUROLOGICAL EXAMINATION: CN'S II-XII grossly intact PSYCHIATRIC EXAMINATION: stable DISCHARGE MEDICATIONS: See below DISCHARGE CONDITION: Good DISPOSITION: Discharged to home DISCHARGE INSTRUCTIONS: Activity: Activities tolerated Diet: Regular Follow up: One week with Dr. Keller Seek medical attention should symptoms worsen or progress. Voiced understanding by patient and/or caregiver. TRANSITION OF CARE ISSUES: None TIME SPENT ON DISCHARGE: greater than 35 minutes Please CC: PCP: Dr. Keller. Vocational Rehabilitation Consultant: Gerson Peñaloza M.D. Neurologist: Isac Alvarez M.D. Patron Attendant: Bert Dejesus M.D. Vital Signs/I&Os Vital Signs Date Time Temp Pulse Resp B/P (MAP) Pulse Ox O2 Delivery O2 Flow Rate FiO2 07/07/17 08:33 88 115/62 07/07/17 08:33 20 Room Air 07/07/17 08:00 98.5 96 07/07/17 04:11 2.0 I&O- Last 24 Hours up to 6 AM 07/07/17 06:00 Intake Total 1151 ml Output Total 2975 ml Balance -1824 ml Laboratory Data Labs 24H Laboratory Tests 2 07/07/17 06:00: Nucleated Red Blood Cells % (auto) 0.0, Prothrombin Time 25.1H, Prothromb Time International Ratio 2.18, Anion Gap 5L, Glomerular Filtration Rate > 60.0, Blood Urea Nitrogen 14, Creatinine 0.68L, Sodium Level 144, Potassium Level 4.0 , Chloride Level 111H, Carbon Dioxide Level 28, Calcium Level 8.1L CBC/BMP Laboratory Tests 07/07/17 06:00 Red Blood Count 3.50 L, Mean Corpuscular Volume 93.7, Mean Corpuscular Hemoglobin 30.6, Mean Corpuscular Hemoglobin Concent 32.6, Red Cell Distribution Width 14.2, Calcium Level 8.1 L Microbiology Microbiology 07/04/17 Blood Culture - Preliminary, Resulted No Growth after 72 hours. All specime... 07/04/17 Blood Culture - Preliminary, Resulted No Growth after 72 hours. All specime... 07/04/17 Respiratory Virus Panel (PCR) (SARAH) - Final, Complete Human Metapneumovirus 07/04/17 Influenza Virus Type A Antigen - Final, Complete 07/04/17 Influenza Virus Type B Antigen - Final, Complete 07/04/17 Gram Stain - Final, Complete 07/04/17 Sputum Culture - Final, Complete Yeast Like Organism Discharge Medications Scheduled (Xanax Xr) 1 Mg Tab, 1 MG PO DAILY, (Reported) (Lidocaine) 5 % Pad, 3 PATCH TD DAILY, (Reported) 12 HOURS ON, 12 HOURS OFF APPLY TO LOWER BACK Ascorbic Acid (Vitamin C) 1,000 Mg Tab, 1,000 MG PO DAILY, (Reported) Bisoprolol Fumarate (Bisoprolol Fumarate) 5 Mg Tab, 10 MG PO DAILY, (Reported) Cetirizine HCl (Cetirizine HCl) 10 Mg Tab, 10 MG PO DAILY, (Reported) Cholecalciferol (Vitamin D) 1,000 Unit Tab, 1,000 UNIT PO DAILY, (Reported) Dicyclomine HCl (Dicyclomine HCl) 20 Mg Tab, 20 MG PO TID, (Reported) Enalapril Maleate (Enalapril Maleate) 2.5 Mg Tab, 2.5 MG PO QHS, (Reported) Finasteride (Finasteride) 5 Mg Tab, 5 MG PO DAILY, (Reported) Levothyroxine Sodium (Synthroid) 75 Mcg Tab, 75 MCG PO QHS, (Reported) Metformin Hydrochloride (Metformin HCl ER) 750 Mg Tab, 1,500 MG PO QPM, ( Reported) Mirtazapine (Mirtazapine Odt) 15 Mg Tab, 15 MG PO QHS, (Reported) Moxifloxacin Hydrochloride (Avelox) 400 Mg Tab, 400 MG PO DAILY Multivitamins *[facility] STOCKED* (Thera M Plus *[facility] STOCKED*) 1 Tab Tab, 1 TAB PO DAILY, (Reported) Omeprazole (Omeprazole) 20 Mg Cap, 20 MG PO DAILY, (Reported) Oxybutynin Chloride (Oxybutynin Chloride ER) 10 Mg Tab, 10 MG PO DAILY, ( Reported) Oxycodone HCl (Oxycodone HCl ER) 40 Mg Tab, 40 MG PO BID, (Reported) TAKES 1 TAB AT 1400, AND QHS Oxycodone HCl (Oxycodone HCl ER) 40 Mg Tab, 80 MG PO QAM, (Reported) Rosuvastatin (Crestor) 10 Mg Tab, 10 MG PO QHS, (Reported) Sertraline HCl (Sertraline HCl) 100 Mg Tab, 200 MG PO DAILY, (Reported) Tamsulosin Hydrochloride (Flomax) 0.4 Mg Cap, 0.4 MG PO BID, (Reported) Torsemide (Torsemide) 20 Mg Tab, 20 MG PO DAILY, (Reported) Warfarin Sod (Warfarin Sodium) 5 Mg Tab, 5 MG PO ASDIRECTED, (Reported) TESTS ON TUESDAY- CURRENTLY 5MG TUE, Zonisamide (Zonisamide) 50 Mg Cap, 100 MG PO QHS, (Reported) Scheduled PRN Acetaminophen (Tylenol) 325 Mg Tab, 650 MG PO Q4H PRN for PAIN / FEVER, ( Reported) Alprazolam (Xanax) 0.5 Mg Tab, 0.5 MG PO Q4H PRN for ANXIETY, (Reported) Oxycodone/Acetaminophen (Oxycodone/Acetaminophen 5-325 mg) 1 Tab Tab, 2 TAB PO Q6H PRN for PAIN, (Reported) Allergies Coded Allergies: Penicillins (Verified Allergy, Intermediate, SWELLING & HIVES, 10/18/12) Penicillins Cross Reactors (Verified Allergy, Intermediate, SWELLING & HIVES, 10/18/12) Morphine (Verified Adverse Reaction, Mild, confused, 07/04/17) LAUREN YANEZ DO Jul 07, 2017 12:50
== END 2017-07-07 11:50 | disposition home or self-care (01) | DRG 193 ==
LOC: M ED 09:06 → M ED INP 12:05 → M PCU 14:09
PROVIDERS: ADMIT Internal Medicine; ATTEND Hospitalist
DX: J12.3 Human metapneumovirus pneumonia (principal); J96.01 Acute respiratory failure with hypoxia; I48.91 Unspecified atrial fibrillation; F32.9 Major depressive disorder, single episode, unspecified; E11.9 Type 2 diabetes mellitus without complications; G47.33 Obstructive sleep apnea (adult) (pediatric); E78.5 Hyperlipidemia, unspecified; I11.0 Hypertensive heart disease with heart failure; I50.9 Heart failure, unspecified; N40.0 Benign prostatic hyperplasia without lower urinary tract symptoms; N32.81 Overactive bladder; E55.9 Vitamin D deficiency, unspecified; F41.9 Anxiety disorder, unspecified; G47.00 Insomnia, unspecified; G43.909 Migraine, unspecified, not intractable, without status migrainosus; E03.9 Hypothyroidism, unspecified; Z79.84 Long term (current) use of oral hypoglycemic drugs; Z79.891 Long term (current) use of opiate analgesic; Z79.899 Other long term (current) drug therapy; Z79.01 Long term (current) use of anticoagulants; Z88.0 Allergy status to penicillin; Z88.5 Allergy status to narcotic agent; Z96.643 Presence of artificial hip joint, bilateral; Z98.1 Arthrodesis status; Z95.0 Presence of cardiac pacemaker

== ENCOUNTER → 2017-08-12 | Outpatient (REF) | payer MEDICARE, OTHER ==
[2017-08-12 16:52] LABS: PHOSPHORUS LEVEL 3.6 MG/DL (2.5-4.9)
== END ==
LOC: M LAB REF 16:20
DX: I50.32 Chronic diastolic (congestive) heart failure (principal); I48.2 Chronic atrial fibrillation
CPT/HCPCS: 84100

== ENCOUNTER → 2018-04-19 | Outpatient (CLI) | payer MEDICARE, OTHER ==
[~2018-04-19] MED LIST changes: -/TAMS4CA OR; -/WARF5TA OR; -ACET65TA OR; -ALPR1TAB3 OR; -AMBI10TA OR; -BISO10TA2 OR; -CETI10TA OR; -DIGO0.126 OR; -ENAL10TA2 OR; -GLUC1000 OR; +ISOVUE-370 76% 100ML VIAL (Q9967) As Ordered; -LIDO5DIS EXT; -LIDOCAINE 5% (LIDODERM) PATCH TD SCH; -OMEP20TA7 OR; -OXYC40TA19 OR; -OXYC80TA14 OR; -PROS5TAB OR; -SERT100T OR; -SIMV40TA2 OR; -VESICARE OR; -VITA500C OR
== END ==
LOC: M RAD 10:39
DX: M47.816 Spondylosis without myelopathy or radiculopathy, lumbar region (principal); M51.26 Other intervertebral disc displacement, lumbar region; M48.061 Spinal stenosis, lumbar region without neurogenic claudication; Z98.1 Arthrodesis status
CPT/HCPCS: Q9967

== ENCOUNTER 2018-05-10 13:06 | Emergency (ER) | payer MEDICARE, OTHER ==
[2018-05-10 14:23] LABS: PROTHROMBIN TIME 58.5 SECONDS (12.1-14.4)
[2018-05-10 14:55] LABS: INR 6.47
[2018-05-10 15:50] LABS: HEMATOCRIT 34.8 % (42.0-52.0); MEAN CORPUSCULAR HEMOGLOBIN 28.7 pg (27.0-33.0); MEAN CORPUSCULAR HGB CONC 31.6 g/dl (32.0-36.5); MEAN CORPUSCULAR VOLUME 90.9 fl (80.0-96.0); PLATELET COUNT, AUTOMATED 203 10^3/uL (150-450); RED BLOOD COUNT 3.83 10^6/uL (4.30-6.10); RED CELL DISTRIBUTION WIDTH 13.4 % (11.5-14.5); WHITE BLOOD COUNT 6.1 10^3/uL (4.0-10.0)
[2018-05-10 16:05] LABS: ANION GAP 8 MEQ/L (8-16); BLOOD UREA NITROGEN 14 MG/DL (7-18); CALCIUM LEVEL 8.8 MG/DL (8.8-10.2); CARBON DIOXIDE LEVEL 28 MEQ/L (21-32); CHLORIDE LEVEL 106 MEQ/L (98-107); CREATININE FOR GFR 0.87 MG/DL (0.70-1.30); GLOMERULAR FILTRATION RATE > 60.0 (>42); GLUCOSE, FASTING 94 MG/DL (70-100); POTASSIUM SERUM 4.2 MEQ/L (3.5-5.1); SODIUM LEVEL 142 MEQ/L (136-145)
== END 2018-05-10 16:40 | disposition home or self-care (01) ==
LOC: M ED 13:06
DX: R79.1 Abnormal coagulation profile (principal); I51.9 Heart disease, unspecified; I10 Essential (primary) hypertension; Z79.899 Other long term (current) drug therapy; Z88.5 Allergy status to narcotic agent; Z88.0 Allergy status to penicillin
CPT/HCPCS: 80048

== ENCOUNTER → 2018-05-11 | Outpatient (REF) | payer MEDICARE, OTHER ==
[2018-05-11 14:29] LABS: INR 4.82; PROTHROMBIN TIME 46.3 SECONDS (12.1-14.4)
== END ==
LOC: M LAB REF 13:42
DX: Z51.81 Encounter for therapeutic drug level monitoring (principal); Z79.01 Long term (current) use of anticoagulants; I48.2 Chronic atrial fibrillation
CPT/HCPCS: 85610

== ENCOUNTER → 2018-08-08 | Outpatient (REF) | payer MEDICARE, OTHER ==
[~2018-08-08] MED LIST changes: +/TAMS4CA OR; +/WARF5TA OR; +ACET65TA OR; +ALPR1TAB3 OR; +AMBI10TA OR; +AVEL1TAB3 PO; +BISO10TA2 OR; +BISO5TAB5 PO; +CETI10TA OR; +CETI10TA PO; +CODE30TA3 PO; +CRES10TA32 PO; +DICY20TA PO; +DIGO0.126 OR; +DOXY100T16 PO; +ENAL10TA2 OR; +ENAL2.5T PO; +FINA5TAB2 PO; +FLOM0.4C39 PO; +GLUC1000 OR; +HYDR-3713 PO; -ISOVUE-370 76% 100ML VIAL (Q9967) As Ordered; +LEVO10VL IM; +LEVO75TA4 PO; +LIDO1PAD TD; +LIDO5DIS EXT; +METF750T PO; +MIRT-14 PO; +MYRB25TA PO; +OMEP20CA3 PO; +OMEP20TA7 OR; +OXYB10TA PO; +OXYC-405 PO; +OXYC1TAB23 PO; +OXYC30TA84 PO; +OXYC40TA19 OR; +OXYC80TA14 OR; +PROS5TAB OR; +SERT-138 PO; +SERT100T OR; +SIMV40TA2 OR; +SYNT75TA PO; +TORS20TA2 PO; +TYLE325T5 PO; +VESICARE OR; +VITA10006 PO; +VITA100066 PO; +VITA500C OR; +VITMTA PO; +WARF-23 PO; +XANA0.5T PO; +XANA1TAB PO; +ZONI100C2 PO; +ZONI50CA3 PO
[2018-08-08 17:59] LABS: IRON (FE) 48 UG/DL (65-175); PERCENT SATURATION 16.7 % (19.7-50.0); RHEUMATOID FACTOR QUANT < 10.0 IU/ML (<15.0); TOTAL IRON BINDING CAPACITY 287 UG/DL (250-450); TOTAL PROTEIN 6.5 GM/DL (6.4-8.2)
[2018-08-08 18:10] LABS: FOLATE > 24.0 NG/ML
[2018-08-10 13:26] LABS: ALBUMIN 3.87 GM/DL (3.29-5.55); ALBUMIN % 59.5 % (55.8-66.1); ALPHA-1-GLOBULIN % 5.3 % (2.9-4.9); ALPHA-1-GLOBULINS 0.34 GM/DL (0.17-0.41); ALPHA-2-GLOBULINS 0.73 GM/DL (0.42-0.99); ALPHA-2-GLOBULINS % 11.3 % (7.1-11.8); BETA-1-GLOBULINS 0.42 GM/DL (0.28-0.60); BETA-1-GLOBULINS % 6.5 % (4.7-7.2); BETA-2-GLOBULINS 0.29 GM/DL (0.19-0.55); BETA-2-GLOBULINS % 4.4 % (3.2-6.5); GAMMA GLOBULINS 0.85 GM/DL (0.65-1.58)
[2018-08-10 14:44] LABS: ANTINUCLEAR ANTIBODIES DIRECT Negative (Negative)
[2018-08-11 08:32] LABS: VITAMIN B12 LEVEL 421 PG/ML (232-1245)
== END ==
LOC: M LAB REF 16:45
PROVIDERS: ATTEND Internal Medicine
DX: D64.9 Anemia, unspecified (principal); M25.50 Pain in unspecified joint

== ENCOUNTER → 2018-09-08 | Outpatient (REF) | payer MEDICARE, OTHER | LOC: M LAB REF 16:28 | PROVIDERS: ATTEND Internal Medicine | DX: D64.9 Anemia, unspecified (principal) ==

== ENCOUNTER → 2019-01-23 | Outpatient (REF) | payer MEDICARE, OTHER ==
[~2019-01-23] MED LIST changes: -/TAMS4CA OR; -/WARF5TA OR; +ACET300T47 PO; -CODE30TA3 PO; +COUM1TAB17 OR; +CRES10TA PO; -CRES10TA32 PO; +FLOM0.4C39 OR; -MIRT-14 PO; +MIRT1TAB15 PO; -OMEP20CA3 PO; +OMEP20CA4 PO
[2019-01-23 16:52] LABS: BLOOD UREA NITROGEN 16 MG/DL (7-18); CALCIUM LEVEL 8.5 MG/DL (8.8-10.2); CARBON DIOXIDE LEVEL 30 MEQ/L (21-32); CHLORIDE LEVEL 106 MEQ/L (98-107); CREATININE FOR GFR 0.83 MG/DL (0.70-1.30); GLOMERULAR FILTRATION RATE > 60.0 (>42); GLUCOSE, FASTING 107 MG/DL (70-100); POTASSIUM SERUM 4.1 MEQ/L (3.5-5.1); SODIUM LEVEL 141 MEQ/L (136-145)
== END ==
LOC: M LABDRAW1 16:24
PROVIDERS: ATTEND Physician Assistant
DX: I50.32 Chronic diastolic (congestive) heart failure (principal)

== ENCOUNTER → 2019-03-22 | Outpatient (REF) | payer MEDICARE, OTHER ==
[~2019-03-22] MED LIST changes: +BISO5TAB14 PO; -BISO5TAB5 PO; -DOXY100T16 PO; +DOXY100T27 PO; -METF750T PO; +METF750T36 PO; +OMEP1CAP73 PO; -OMEP20CA4 PO; -OXYB10TA PO; +OXYB10TA23 PO; +ZONI100C17 PO; -ZONI100C2 PO; +ZONI50CA11 PO; -ZONI50CA3 PO
[2019-03-23 14:09] LABS: ANTINUCLEAR ANTIBODIES DIRECT Negative (Negative)
== END ==
LOC: M LAB REF 13:16
PROVIDERS: ATTEND Internal Medicine
DX: M15.9 Polyosteoarthritis, unspecified (principal)

== ENCOUNTER → 2019-04-05 | Outpatient (CLI) | payer MEDICARE, OTHER ==
[~2019-04-05] MED LIST changes: -BISO5TAB14 PO; +BISO5TAB9 PO; +DOXY100T16 PO; -DOXY100T27 PO; -OMEP1CAP73 PO; +OMEP20CA4 PO; +OXYB10TA2 PO; -OXYB10TA23 PO; -ZONI100C17 PO; +ZONI100C2 PO; -ZONI50CA11 PO; +ZONI50CA3 PO
--- NOTE | 2019-04-05 16:19 | REP ---
Left hand four views: There is demineralization. There is moderate joint space narrowing of the PIP and DIP articulations compatible with mild osteoarthritic change. The MCP articulations and carpal articulations are unremarkable. There are no calcifications. Impression: Mild osteoarthritic change of the PIP and DIP articulations. Right hand four views: There is minimal joint space narrowing of the PIP and DIP articulations, nonspecific but possibly early change of osteoarthritis. The MCP articulations and carpal articulations are unremarkable. There is demineralization. Impression: Mild osteoarthritic change of the PIP and DIP articulations. Electronically Signed by Srinath Redding MD 04/05/2019 04:10 P
== END ==
LOC: M WUC 14:50
PROVIDERS: ATTEND Internal Medicine Rheumatology
DX: M19.041 Primary osteoarthritis, right hand (principal); M19.042 Primary osteoarthritis, left hand

== ENCOUNTER → 2020-02-18 | Outpatient (REF) | payer MEDICARE, OTHER ==
[~2020-02-18] MED LIST changes: +BISO5TAB14 PO; -BISO5TAB9 PO; -DOXY100T16 PO; +DOXY100T27 PO; +ENAL1TAB46 PO; -ENAL2.5T PO; +OMEP1CAP73 PO; -OMEP20CA4 PO; -OXYB10TA2 PO; +OXYB10TA23 PO; +OXYC30TA PO; -OXYC30TA84 PO; +ZONI100C17 PO; -ZONI100C2 PO; +ZONI50CA11 PO; -ZONI50CA3 PO
== END ==
LOC: M LAB REF 09:39
PROVIDERS: ATTEND Internal Medicine
DX: I48.21 Permanent atrial fibrillation (principal)

== ENCOUNTER → 2020-03-26 | Outpatient (REF) | payer MEDICARE, OTHER | LOC: M LAB REF 17:00 | PROVIDERS: ATTEND Podiatrist | DX: L03.031 Cellulitis of right toe (principal); M79.671 Pain in right foot ==

== ENCOUNTER → 2020-05-06 | Outpatient (CLI) | payer MEDICARE, OTHER ==
--- NOTE | 2020-05-06 11:59 | REPVR ---
PROCEDURE INFORMATION: Exam: CT Thoracic Spine Without Contrast Exam date and time: 05/06/2020 9:07 AM Age: 74 years old Clinical indication: Pain in thoracic spine; Additional info: Thoarcic spine pain / lbp TECHNIQUE: Imaging protocol: Computed tomography images of the thoracic spine without contrast. Radiation optimization: All CT scans at this facility use at least one of these dose optimization techniques: automated exposure control; mA and/or kV adjustment per patient size (includes targeted exams where dose is matched to clinical indication); or iterative reconstruction. COMPARISON: No relevant prior studies available. FINDINGS: Vertebrae: Bone mineralization is decreased, suggestive of osteopenia. There is moderate dextroconvex scoliosis of the thoracic spine. No acute fracture is identified. Discs/Spinal canal/Neural foramina: No significant spinal canal stenosis. Soft tissues: Unremarkable. Vasculature: Atherosclerotic calcifications are noted within the aorta and its branches. Lymph nodes: Calcified mediastinal lymph nodes are present, likely due to old granulomatous disease. Heart: The heart is moderately enlarged. A pacemaker device is present. IMPRESSION: 1. No acute abnormality. 2. Chronic findings as discussed above. Electronically signed by: Raz Armenta On 05/06/2020 11:59:09 AM
--- NOTE | 2020-05-06 12:09 | REPVR ---
PROCEDURE INFORMATION: Exam: CT Lumbar Spine Without Contrast Exam date and time: 05/06/2020 9:07 AM Age: 74 years old Clinical indication: Low back pain; Additional info: Thoarcic spine pain / lbp TECHNIQUE: Imaging protocol: Computed tomography images of the lumbar spine without contrast. Radiation optimization: All CT scans at this facility use at least one of these dose optimization techniques: automated exposure control; mA and/or kV adjustment per patient size (includes targeted exams where dose is matched to clinical indication); or iterative reconstruction. COMPARISON: CT Spine, lumbar w/contrast 04/19/2018 11:02 AM FINDINGS: Vertebrae: Pedicle screw and ambreen fixation is present L3 through L5. The surgical hardware is in place and intact. There is 10 mm of anterolisthesis of L4 on L5 due to severe facet arthropathy and chronic L4 pars defects. No acute fracture is identified. Moderate levoconvex scoliosis of the lumbar spine is present. Discs/Spinal canal/Neural foramina: Vacuum disc phenomenon is present L2-L3, L4-L5, and L5-S1. There is probable moderate spinal canal stenosis at L2-L3 due to diffuse circumferential disc bulging and thickening of the ligamentum flavum. Moderate spinal canal stenosis is likely also present at L3-L4 and L4-L5. There is moderate bilateral neural foraminal narrowing at L1-L2, L2-L3, and L3-L4. Severe left and moderate right neural foraminal narrowing is present at L4-L5. Severe bilateral neural foraminal narrowing is present at L5-S1. Sacrum/coccyx: Severe degenerative changes of the sacroiliac joints are noted. Kidneys and ureters: A 6 mm nonobstructing stone is noted within the right kidney. A 2 cm cyst is also noted in the inferior right kidney. Vasculature: Atherosclerotic calcifications are noted within the aorta and its branches. Soft tissues: Unremarkable. IMPRESSION: 1. No acute abnormality. 2. Chronic findings as discussed above. COMMENTS: Consistent with the [employer]'s Incidental Findings Committee white paper (J Am Yuan Radiol 2018): Any incidental renal lesion less than 1 cm or classified as too small to characterize, or any incidental cystic renal lesion characterized as simple-appearing, is likely benign. No follow-up imaging is recommended for these lesions per consensus recommendations based on imaging criteria. Electronically signed by: Raz Armenta On 05/06/2020 12:09:08 PM
== END ==
LOC: M RAD 09:02
PROVIDERS: ATTEND Physician Assistant Medical
DX: M51.36 Other intervertebral disc degeneration, lumbar region (principal); R20.2 Paresthesia of skin

== ENCOUNTER → 2020-08-18 | Outpatient (CLI) | payer MEDICARE, OTHER ==
[~2020-08-18] MED LIST changes: -DICY20TA PO; +DICY20TA3 PO
--- NOTE | 2020-08-18 19:00 | REP ---
INDICATION: THORACIC AA WITHOUT ANEURYSM. COMPARISON: None. TECHNIQUE: CT chest performed without the use of intravenous contrast. Sagittal and coronal reconstruction images are performed. FINDINGS: Lungs: There are mild scattered interstitial fibrotic changes. There is calcified granuloma in the right lower lobe. Mediastinum: There is a small calcified precarinal lymph node. Carli: Calcified right hilar lymph nodes are seen. Axilla: No gross adenopathy. Pleura: No effusion. Heart: There is mild cardiomegaly. Thoracic aorta: Ascending thoracic aorta is dilated up to 5.4 cm in AP dimension. Proximal aortic arch measures 4.8 cm. Distal aortic arch measures 3.6 cm. Descending thoracic aorta decreases in caliber more distally. There are mild atherosclerotic calcifications diffusely of the thoracic aorta. Proximal brachiocephalic artery measures 2.3 cm in diameter. Upper abdominal structures: Grossly unremarkable. Visualized osseous structures: There are degenerative changes of the spine without compression deformity. IMPRESSION: Ascending thoracic aorta is dilated up to 5.4 cm in AP dimension. Proximal aortic arch measures 4.8 cm. More distal thoracic aorta is normal in caliber. <Electronically signed by Srinath Hutton > 08/18/20 [id number]
== END ==
LOC: M RAD 18:18
PROVIDERS: ATTEND Thoracic Surgery (Cardiothoracic Vascular Surgery)
DX: I71.2 Thoracic aortic aneurysm, without rupture (principal); I51.7 Cardiomegaly; J84.10 Pulmonary fibrosis, unspecified; I70.0 Atherosclerosis of aorta

== ENCOUNTER → 2020-09-21 | Outpatient (CLI) | payer MEDICARE, OTHER | LOC: M LABSMTC 10:26 | PROVIDERS: ATTEND Internal Medicine Cardiovascular Disease | DX: Z11.52 Encounter for screening for COVID-19 (principal) ==

== ENCOUNTER → 2020-09-29 | Outpatient (CLI) | payer MEDICARE, OTHER | LOC: M LABSMTC 10:57 | PROVIDERS: ATTEND Thoracic Surgery (Cardiothoracic Vascular Surgery) | DX: Z01.812 Encounter for preprocedural laboratory examination (principal); Z20.822 Contact with and (suspected) exposure to COVID-19; I35.0 Nonrheumatic aortic (valve) stenosis; I71.2 Thoracic aortic aneurysm, without rupture ==

== ENCOUNTER → 2020-10-13 | Outpatient (REF) | payer MEDICARE, OTHER ==
[2020-10-13 19:11] LABS: INR 1.42; PROTHROMBIN TIME 17.7 SECONDS (12.5-14.3)
== END ==
LOC: M LABDRWAD 17:54
PROVIDERS: ATTEND Thoracic Surgery (Cardiothoracic Vascular Surgery)
DX: K21.9 Gastro-esophageal reflux disease without esophagitis (principal); N40.0 Benign prostatic hyperplasia without lower urinary tract symptoms; E03.9 Hypothyroidism, unspecified; Z97.2 Presence of dental prosthetic device (complete) (partial); Z79.01 Long term (current) use of anticoagulants; I48.0 Paroxysmal atrial fibrillation; I10 Essential (primary) hypertension; I35.0 Nonrheumatic aortic (valve) stenosis; E11.9 Type 2 diabetes mellitus without complications; I71.2 Thoracic aortic aneurysm, without rupture

== ENCOUNTER 2020-10-18 11:16 | Observation (INO) | payer MEDICARE, OTHER ==
[~2020-10-18] VITALS: Ht 188 cm; Wt 109.0 kg
[2020-10-18] MEDS ORDERED: SODIUM BICARBONATE 8.4% INJ 50 ML SYRINGE IV STA ×2 (11:39→18:53)
[2020-10-18] MEDS ORDERED: DEXTROSE 50% 50 ML SYRINGE IV STA ×2 (11:39→18:50)
[2020-10-18] MEDS ORDERED: CALCIUM GLUCONATE 1,000 MG in D5W MINI-BAG PLUS 100 ML IV ONE ×2 (11:40→19:30)
[2020-10-18] MEDS ORDERED: HumuLIN R (REGULAR) INSULIN (NovoLIN R) **100U/ML** PER UNIT IV ONE (11:40)
[2020-10-18 11:54] LABS: HEMOGLOBIN 10.2 g/dl (13.5-17.5); RED BLOOD COUNT 3.48 10^6/uL (4.30-6.10); WHITE BLOOD COUNT 10.9 10^3/uL (4.0-10.0)
[2020-10-18] MEDS ORDERED: CBD OIL (11:54)
[2020-10-18] MEDS ORDERED: SPIR-10 PO (11:54)
[2020-10-18] MEDS ORDERED: VALS1TAB68 PO (11:54)
[2020-10-18] MEDS ORDERED: ASPI81TA26 PO (11:54)
[2020-10-18] MEDS ORDERED: DIGO0.123 PO (11:54)
[2020-10-18] MEDS ORDERED: WARF-58 PO (11:54)
[2020-10-18] MEDS ORDERED: OXYC20TA40 PO (11:54)
--- NOTE | 2020-10-18 11:54 | REP ---
INDICATION: CVA. COMPARISON: Portable chest dated 07/04/2017. TECHNIQUE: Portable AP chest with the patient upright. FINDINGS: There is chronic cardiomegaly, unchanged. There has been interim cardiac valve replacement. There has been interim placement of a left atrial appendage clip. There is a pacemaker, unchanged. The previous diffuse interstitial coarsening has resolved. The lung robert are otherwise clear. There are no pleural effusions. There are surgical clips in the right axilla as an interval change. There is thoracic scoliosis convex right, unchanged. IMPRESSION: No acute cardiopulmonary findings. Chronic cardiomegaly. Pacemaker, unchanged. Interim cardiac valve replacement and left atrial appendage clip placement and surgical clips in the right axilla. <Electronically signed by Srinath Redding > 10/18/20 [id number]
[2020-10-18 11:55] LABS: BASO % 0.3 % (0.0-1.0); EOS # 0.6 10^3/uL (0.0-0.5); EOS % 5.8 % (0.0-3.0); LYMPH # 1.2 10^3/uL (1.5-5.0); LYMPH % 11.1 % (24.0-44.0); MEAN CORPUSCULAR HEMOGLOBIN 29.3 pg (27.0-33.0); MEAN CORPUSCULAR HGB CONC 30.9 g/dl (32.0-36.5); MEAN CORPUSCULAR VOLUME 94.8 fl (80.0-96.0); MONO # 0.7 10^3/uL (0.0-0.8); MONO % 6.8 % (2.0-8.0); NEUTROPHILS # 8.2 10^3/uL (1.5-8.5); NEUTROPHILS % 75.5 % (36.0-66.0); PLATELET COUNT, AUTOMATED 276 10^3/uL (150-450)
[2020-10-18 12:05] LABS: PARTIAL THROMBOPLASTIN TIME 47.6 SECONDS (24.2-38.5)
--- NOTE | 2020-10-18 12:26 | REPVR ---
PROCEDURE INFORMATION: Exam: CT Head Without Contrast Exam date and time: 10/18/2020 11:56 AM Age: 74 years old Clinical indication: Weakness, extremity; Additional info: CVA - nursing interventions must not delay CT TECHNIQUE: Imaging protocol: Computed tomography of the head without contrast. Radiation optimization: All CT scans at this facility use at least one of these dose optimization techniques: automated exposure control; mA and/or kV adjustment per patient size (includes targeted exams where dose is matched to clinical indication); or iterative reconstruction. Other technique: STROKE PROTOCOL was implemented. COMPARISON: No relevant prior studies available. FINDINGS: Brain: There is moderate central cortical atrophy with to moderate small vessel ischemic disease. There is no intracranial hemorrhage. Cerebral ventricles: No ventriculomegaly. Bones/joints: Unremarkable. No acute fracture. Paranasal sinuses: Visualized sinuses are unremarkable. No fluid levels. Mastoid air cells: Visualized mastoid air cells are well aerated. Vasculature: There are extensive vascular calcifications. Soft tissues: Unremarkable. IMPRESSION: No acute intracranial abnormality. ASSESSMENT: ASPECTS ([place] Stroke Program Early CT Score) is 10. Electronically signed by: Raymundo Rausch On 10/18/2020 12:27:18 PM
[2020-10-18 12:33] LABS: INR 1.66
[2020-10-18 12:38] LABS: ACETAMINOPHEN LEVEL 2.4 UG/ML (10.0-30.0); ALBUMIN 3.4 GM/DL (3.2-5.2); ALT/SGPT 43 U/L (12-78); BILIRUBIN,DIRECT 0.1 MG/DL (0.0-0.2); BILIRUBIN,TOTAL 0.2 MG/DL (0.2-1.0); CK-MB VALUE MASS 4.2 NG/ML (<3.6); CPK CREATINE PHOSPHOKINASE 220 U/L (39-308); ETHYL ALCOHOL (ETHANOL) < 0.003 % (0.000-0.010); MB/CK RELATIVE INDEX 1.91 (< OR =4); SALICYLATE LEVEL < 1.7 MG/DL (5.0-30.0); TOTAL PROTEIN 6.7 GM/DL (6.4-8.2); TROPONIN I 0.04 NG/ML (< 0.10)
[2020-10-18 12:59] LABS: CALCIUM LEVEL 8.5 MG/DL (8.8-10.2); CREATININE FOR GFR 2.33 MG/DL (0.70-1.30); GLOMERULAR FILTRATION RATE 29.3 (>42); POTASSIUM SERUM 6.4 MEQ/L (3.5-5.1)
[2020-10-18] MEDS ORDERED: NS 500 ML IV ONE (13:15)
[2020-10-18] MEDS ORDERED: MYRB50TA PO (14:11)
[2020-10-18] MEDS ORDERED: OXYC1TAB23 PO (14:11)
[2020-10-18] MEDS ORDERED: ZONI50CA PO (14:11)
[2020-10-18] MEDS ORDERED: ALPR1TAB6 PO (14:11)
[2020-10-18] MEDS ORDERED: ZOLO100T PO (14:11)
[2020-10-18] MEDS ORDERED: SYNT137T7 PO (14:11)
[2020-10-18] MEDS ORDERED: GLUCAGON INJ 1MG VIAL SC PRN (14:15)
[2020-10-18] MEDS ORDERED: GLUCOSE 4GM CHEW TABLET PO PRN (14:15)
[2020-10-18] MEDS ORDERED: DEXTROSE 50% 50 ML SYRINGE IV PRN (14:15)
--- NOTE | 2020-10-18 14:28 | HPEPDOC ---
General Date of Admission 10/18/20 Date of Service: Oct 18, 2020 Chief Complaint The patient is a 74-year-old male admitted with a reason for visit of Neuro Issue. Source: Patient Exam Limitations: No limitations Timing/Duration: 4-6 hours Severity: Moderate History of Present Illness Patient is 74 years old male with past medical history of aortic valve replacement, atrial fibrillation status post pacemaker placement, depression, type 2 diabetes, hyperlipidemia, hypertension, CHF presented to the hospital with altered mental status. According to his , in the morning patient became forgetful and had slurred speech. Patient didn't have any fever or chills. In didn't have nausea or vomiting. His altered mental status resolved in ER. Of note patient had aortic valve replacement with ascending aorta replacement on 09/30/20 in [facility]. Patient denied any focal weaknesses, headache, visual disturbances. In ER patient was found to have hemoglobin of 10.2 potassium 6.4, creatinine 2.3. EKG did not show any acute ischemic changes, paced rhythm. CT head negative for bleeding or acute ischemic changes. Patient received in ER IV insulin, D50, bicarbonate IV. Home Medications Scheduled Aspirin (Aspirin EC) 81 Mg Tablet.dr, 81 MG PO DAILY, (Reported) Cannabidiol (Cbd Oil) Btl, 1 DOSE ASDIRECTED, (Reported) Dicyclomine HCl (Dicyclomine HCl) 20 Mg Tab, 40 MG PO DAILY, (Reported) Dicyclomine HCl (Dicyclomine HCl) 20 Mg Tablet, 20 MG PO QHS, (Reported) Digoxin (Digoxin) 125 Mcg Tablet, 125 MCG PO QPM, (Reported) Finasteride (Finasteride) 5 Mg Tab, 5 MG PO DAILY, (Reported) Levothyroxine Sodium (Synthroid) 137 Mcg Tablet, 137 MCG PO DAILY, (Reported) Metformin HCl (Metformin HCl ER) 750 Mg Tab, 1,500 MG PO QPM, (Reported) Mirabegron (Myrbetriq) 50 Mg Tab.er.24h, 50 MG PO DAILY, (Reported) Mirtazapine (Mirtazapine) 15 Mg Tab, 15 MG PO QHS, (Reported) Multivitamins (Thera M Plus Tablet) 1 Tab Tab, 1 TAB PO DAILY, (Reported) Omeprazole (Omeprazole) 20 Mg Cap, 20 MG PO DAILY, (Reported) Rosuvastatin Calcium (Crestor) 10 Mg Tab, 10 MG PO QHS, (Reported) Sertraline Hcl (Zoloft) 100 Mg Tablet, 200 MG PO DAILY, (Reported) Spironolactone (Spironolactone) 25 Mg Tablet, 25 MG PO DAILY, (Reported) Tamsulosin HCl (Flomax) 0.4 Mg Cap, 0.8 MG PO DAILY, (Reported) Torsemide (Torsemide) 20 Mg Tab, 10 MG PO DAILY, (Reported) Valsartan (Valsartan) 320 Mg Tablet, 320 MG PO DAILY, (Reported) Warfarin Sodium (Warfarin Sodium) 3 Mg Tablet, 3 MG PO QPM, (Reported) Zonisamide (Zonisamide) 100 Mg Cap, 100 MG PO BID, (Reported) TAKE WITH 50MG CAP. TOTAL OF 150MG Zonisamide (Zonisamide) 50 Mg Capsule, 50 MG PO BID, (Reported) TAKE WITH 100MG CAP. TOTAL OF 150MG Scheduled PRN Alprazolam (Xanax) 0.5 Mg Tab, 0.5 MG PO 5XD PRN for ANXIETY, (Reported) Alprazolam (Alprazolam ER) 1 Mg Tab.er.24h, 1 MG PO DAILY PRN for EXTREME ANXI ETY, (Reported) Oxycodone HCl (Oxycontin) 20 Mg Tab.er.12h, 20 MG PO BID PRN for PAIN, (Reported) Oxycodone HCl/Acetaminophen (Oxycodone-Acetaminophen 5-325) 1 Each Tablet, 2 TAB PO Q6H PRN for PAIN, (Reported) Allergies Coded Allergies: Penicillins (Verified Allergy, Intermediate, SWELLING & HIVES, 10/18/20) morphine (Verified Adverse Reaction, Unknown, CONFUSED, 10/18/20) Past Medical History Medical History Atrial fibrillation status post pacemaker placement. Depression. [id number]-[id number] diabetes mellitus. Obstructive sleep apnea (GRETTA) noncompliant with CPAP, but does use oxygen via nasal cannula at night. Dyslipidemia. Hypertension. Congestive heart failure (CHF). Benign prostatic hypertrophy (BPH). Overactive bladder. Dyslipidemia. Significant anxiety. Chronic osteoarthritis (OA) pain in the spine. Insomnia. Migraines headaches. Hypertension. Hypothyroidism. Surgical History aortic valve replacement with ascending aorta replacement Family History I personally reviewed family history and found not pertinent Social History * Smoker: Denies Alcohol: Denies Drugs: denies A-FIB/CHADSVASC A-FIB History Current/History of A-Fib/PAF?: Yes Current PO Anticoag Therapy: Yes Review of Systems Constitutional: Denies: Chills Eyes: Denies: Pain, Vision change ENT: Denies: Head Aches Skin: Denies: Rash, Lesions Pulmonary: Denies: Dyspnea, Cough Cardiovascular: Denies: Chest Pain Gastrointestinal: Denies: Nausea Genitourinary: Denies: Dysuria Hematologic: Denies: Bruising Endocrine: Denies: Polydipsia Musculoskeletal: Denies: Neck Pain Neurological: Reports: Confusion Psych: Reports: Mood Normal Physical Examination General Exam: Positive: Alert, Cooperative Eye Exam: Positive: PERRLA ENT Exam: Positive: Atraumatic Neck Exam: Positive: Supple; Negative: JVD Chest Exam: Positive: Clear to auscultation Heart Exam: Positive: Irregular Rhythm; Negative: Rate Normal Telemetry: Positive: Atrial fibrillation Abdomen Exam: Positive: Normal bowel sounds Extremity Exam: Negative: Clubbing Skin Exam: Positive: Nl turgor and temperature Neuro Exam: Positive: Strength at 5/5 X4 ext, Cranial Nerves 3-12 NL Psych Exam: Positive: Oriented x 3 Vital Signs Vital Signs Date Time Temp Pulse Resp B/P (MAP) Pulse Ox O2 Delivery O2 Flow Rate FiO2 10/18/20 13:31 79 98 10/18/20 13:30 120/56 (77) 10/18/20 11:41 13 Room Air 10/18/20 11:16 97.0 Laboratory Data Labs 24H Laboratory Tests 2 10/18/20 11:37: Immature Granulocyte % (Auto) 0.5, Neutrophils (%) (Auto) 75.5H, Lymphocytes (%) (Auto) 11.1L, Monocytes (%) (Auto) 6.8, Eosinophils (%) (Auto) 5.8H, Basophils (%) (Auto) 0.3, Neutrophils # (Auto) 8.2, Lymphocytes # (Auto) 1.2L, Monocytes # (Auto) 0.7, Eosinophils # (Auto) 0.6H, Basophils # (Auto) 0.0, Nucleated Red Blood Cells % (auto) 0.0, Prothrombin Time 20.0H, Prothromb Time International Ratio 1.66, Activated Partial Thromboplast Time 47.6H, POC Glucose (Misc Panel) 124H, POC Sodium (Misc Panel) 133L, POC Potassium (Misc Panel) 6.4*H, POC Chloride (Misc Panel) 104, POC Total CO2 (Misc Panel) 21.0L, POC Blood Urea Nitrogen (Misc Panel 55H, POC Ionized Calcium (Misc Panel) 5.2, POC Creatinine (Misc Panel) 2.6H, POC Hematocrit (Misc Panel) 31.0L, Anion Gap 9, Glomerular Filtration Rate 29.3L, Calcium Level 8.5L, Total Bilirubin 0.2, Direct Bilirubin 0.1, Aspartate Amino Transf (AST/SGOT) 40H, Alanine Aminotransferase (ALT/SGPT) 43, Alkaline Phosphatase 100, Ammonia 30, Total Creatine Kinase 220, Creatine Kinase MB 4.2H, Creatine Kinase MB Relative Index 1.91, Troponin I 0.04, Total Protein 6.7, Albumin 3.4, Albumin/Globulin Ratio 1.0, Thyroid Stimulating Hormone (TSH) 6.910H, Salicylates Level < 1.7L, Acetaminophen Level 2.4L, Ethyl Alcohol Level < 0.003 10/18/20 11:38: Lactic Acid Level 1.6 CBC/BMP Laboratory Tests 10/18/20 11:37 Microbiology Microbiology 10/18/20 Blood Culture, Received Pending 10/18/20 Blood Culture, Received Pending Assessment/Plan Patient is 74 years old male with past medical history of aortic valve replacement, atrial fibrillation status post pacemaker placement, depression, type 2 diabetes, hyperlipidemia, hypertension, CHF presented to the hospital with altered mental status. According to his , in the morning patient became forgetful and had slurred speech. Patient didn't have any fever or chills. In didn't have nausea or vomiting. His altered mental status resolved in ER. Of note patient had aortic valve replacement with ascending aorta replacement on 09/30/20 in [facility]. Patient denied any focal weaknesses, headache, visual disturbances. In ER patient was found to have hemoglobin of 10.2 potassium 6.4, creatinine 2.3. EKG did not show any acute ischemic changes, paced rhythm. CT head negative for bleeding or acute ischemic changes. Patient received in ER IV insulin, D50, bicarbonate IV. Problems (1) Hyperkalemia Status: Acute Problem Text: Most likely secondary to medication side effect superimposed with kidney failure Patient took valsartan and spironolactone BMP every 4 hours Patient received bicarbonate, IV insulin, D50 in ER Kayexalate 1 dose (2) Renal failure Status: Acute Problem Text: Most likely secondary to dehydration due to intensive diuresis Gentle IV fluid, torsemide, spironolactone, valsartan on hold Appreciate/agree with reforestation worker consult (3) Metabolic encephalopathy Status: Chronic Problem Text: Most likely secondary to medication side effect, recently the dose of opioids were increased Alprazolam on hold I reduced the dose of pain meds CT head negative, neurological exam benign (4) Type 2 diabetes mellitus Status: Chronic Problem Text: Insulin sliding scale Diabetes diet (5) Atrial fibrillation Status: Chronic Problem Text: Heart rate under control INR subtherapeutic 1.6 I will increase the dose of Coumadin (6) Hyperlipidemia Status: Chronic Problem Text: Continue statin (7) GERD (gastroesophageal reflux disease) Status: Chronic Problem Text: Continue PPI (8) Hypothyroidism Status: Chronic Problem Text: Continue levothyroxine Plan / VTE VTE Prophylaxis Ordered?: Yes TRACY COLLAZO DO Oct 18, 2020 14:28
[2020-10-18] MEDS ORDERED: DICY20TA3 PO (14:47)
[2020-10-18] MEDS ORDERED: HYDROmorphone 2 MG TAB PO PRN (15:00)
[2020-10-18] MEDS ORDERED: SOD POLYSTYRENE SULFONATE SUSP 15 GM/60 ML UD PO ONE (15:00)
[2020-10-18 15:53] VITALS: BP 114/73
[2020-10-18 15:57] LABS: CALCIUM LEVEL 8.4 MG/DL (8.8-10.2); CREATININE FOR GFR 2.19 MG/DL (0.70-1.30); GLOMERULAR FILTRATION RATE 31.5 (>42); POTASSIUM SERUM 6.1 MEQ/L (3.5-5.1)
[2020-10-18] MEDS: NS 1,000 ML IV SCH (16:29)
[2020-10-18] MEDS ORDERED: WARFARIN SOD 2MG TAB PO ONE (17:00)
[2020-10-18] MEDS: HumaLOG INSULIN (NovoLOG) PER UNIT SC SCH ×2 (17:06→22:04)
[2020-10-18] MEDS: WARFARIN SOD 3MG TAB PO SCH (17:28)
[2020-10-18 18:44] LABS: CALCIUM LEVEL 8.6 MG/DL (8.8-10.2); CREATININE FOR GFR 1.99 MG/DL (0.70-1.30); GLOMERULAR FILTRATION RATE 35.1 (>42); POTASSIUM SERUM 6.3 MEQ/L (3.5-5.1)
[2020-10-18] MEDS ORDERED: HumuLIN R (REGULAR) INSULIN (NovoLIN R) **100U/ML** PER UNIT IV STA (18:50)
--- NOTE | 2020-10-18 19:11 | ECGEPIP ---
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
[2020-10-18] MEDS ORDERED: FUROSEMIDE 40MG/4ML VIAL (J1940) IV ONE (19:30)
[2020-10-18] MEDS ORDERED: ALBUTEROL SULFATE 2.5 MG/0.5 ML INH NEB SOLN NEB ONE (19:30)
[2020-10-18 20:06] VITALS: BP 92/52
[2020-10-18 22:00] VITALS: BP 106/58
[2020-10-18] MEDS: DIGOXIN 0.125 MG TAB PO SCH (22:05)
[2020-10-18] MEDS: ROSUVASTATIN 10 MG TAB (CRESTOR) PO SCH (22:05)
[2020-10-18 22:49] LABS: CALCIUM LEVEL 8.7 MG/DL (8.8-10.2); CREATININE FOR GFR 1.96 MG/DL (0.70-1.30); GLOMERULAR FILTRATION RATE 35.8 (>42)
[2020-10-19] MEDS: NS 1,000 ML IV SCH (01:16)
[2020-10-19 02:37] LABS: CALCIUM LEVEL 8.4 MG/DL (8.8-10.2); CREATININE FOR GFR 1.83 MG/DL (0.70-1.30); GLOMERULAR FILTRATION RATE 38.7 (>42); POTASSIUM SERUM 5.5 MEQ/L (3.5-5.1)
[2020-10-19] MEDS: LEVOTHYROXINE 137MCG TABLET (0.137MG) PO SCH (05:34)
[2020-10-19 06:00] VITALS: BP 117/53
[2020-10-19 06:58] LABS: HEMOGLOBIN 8.9 g/dl (13.5-17.5); RED BLOOD COUNT 3.08 10^6/uL (4.30-6.10); WHITE BLOOD COUNT 6.9 10^3/uL (4.0-10.0)
[2020-10-19 06:59] LABS: MEAN CORPUSCULAR HEMOGLOBIN 28.9 pg (27.0-33.0); MEAN CORPUSCULAR HGB CONC 30.7 g/dl (32.0-36.5); MEAN CORPUSCULAR VOLUME 94.2 fl (80.0-96.0); PLATELET COUNT, AUTOMATED 220 10^3/uL (150-450)
[2020-10-19 07:26] LABS: CALCIUM LEVEL 8.7 MG/DL (8.8-10.2); CREATININE FOR GFR 1.69 MG/DL (0.70-1.30); GLOMERULAR FILTRATION RATE 42.4 (>42); POTASSIUM SERUM 5.8 MEQ/L (3.5-5.1)
[2020-10-19 07:28] LABS: ALBUMIN 2.9 GM/DL (3.2-5.2); BILIRUBIN,TOTAL 0.2 MG/DL (0.2-1.0); CALCIUM LEVEL 8.4 MG/DL (8.8-10.2); CREATININE FOR GFR 1.67 MG/DL (0.70-1.30); POTASSIUM SERUM 5.8 MEQ/L (3.5-5.1); TOTAL PROTEIN 5.9 GM/DL (6.4-8.2)
[2020-10-19 07:29] LABS: MAGNESIUM LEVEL 1.9 MG/DL (1.8-2.4)
[2020-10-19] MEDS: HumaLOG INSULIN (NovoLOG) PER UNIT SC SCH ×4 (07:30→21:00)
[2020-10-19] MEDS ORDERED: DEXTROSE 50% 50 ML SYRINGE IV STA (09:43)
[2020-10-19] MEDS ORDERED: HumuLIN R (REGULAR) INSULIN (NovoLIN R) **100U/ML** PER UNIT IV STA (09:43)
[2020-10-19] MEDS ORDERED: SODIUM BICARBONATE 8.4% INJ 50 ML SYRINGE IV STA (09:43)
[2020-10-19] MEDS ORDERED: CALCIUM GLUCONATE 1,000 MG in D5W MINI-BAG PLUS 100 ML IV ONE (10:00)
[2020-10-19] MEDS: FINASTERIDE 5 MG TAB PO SCH (10:34)
[2020-10-19] MEDS: SERTRALINE 100 MG TAB PO SCH (10:35)
[2020-10-19] MEDS: ASPIRIN 81MG ENTERIC TABLET PO SCH (10:35)
[2020-10-19] MEDS: OMEPRAZOLE 20 MG CAP PO SCH (10:35)
[2020-10-19] MEDS: TAMSULOSIN 0.4 MG CAP PO SCH (10:35)
[2020-10-19 10:39] LABS: CALCIUM LEVEL 8.4 MG/DL (8.8-10.2); CREATININE FOR GFR 1.57 MG/DL (0.70-1.30); GLOMERULAR FILTRATION RATE 46.2 (>42); POTASSIUM SERUM 5.4 MEQ/L (3.5-5.1)
[2020-10-19] MEDS ORDERED: SOD POLYSTYRENE SULFONATE SUSP 15 GM/60 ML UD PO ONE ×2 (11:00)
[2020-10-19] MEDS ORDERED: MIRALAX *UNIT DOSE* 17GM PACKET PO ONE (12:00)
[2020-10-19] MEDS ORDERED: FUROSEMIDE 40MG/4ML VIAL (J1940) IV ONE (12:00)
--- NOTE | 2020-10-19 13:32 | IPNPDOC ---
Text Note Date of Service The patient was seen on 10/19/20. NOTE Subjective: Patient alert, oriented and awake in the morning. Stated that he f eels better today. No fever or chills overnight Objective: GENERAL APPEARANCE: NAD HEENT: no scleral icterus, no JVD, EOMI CARDIOVASCULAR: Aortic systolic murmur, S1-S2 LUNGS: CTA ABDOMEN: soft & not tender w palpitation MUSCULOSKELETAL: no cyanosis, no swelling INTEGUMENT: no generalized pallor NEUROLOGICAL: cranial nerve function from 2-12 intact intact, follows commands, speech not dysarthric Assessment/Plan Patient is 74 years old male with past medical history of aortic valve replacement, atrial fibrillation status post pacemaker placement, depression, type 2 diabetes, hyperlipidemia, hypertension, CHF presented to the hospital with altered mental status. According to his , in the morning patient became forgetful and had slurred speech. Patient didn't have any fever or chills. In didn't have nausea or vomiting. His altered mental status resolved in ER. Of note patient had aortic valve replacement with ascending aorta replacement on 09/30/20 in [facility]. Patient denied any focal weaknesses, headache, visual disturbances. In ER patient was found to have hemoglobin of 10.2 potassium 6.4, creatinine 2.3. EKG did not show any acute ischemic changes, p aced rhythm. CT head negative for bleeding or acute ischemic changes. Patient received in ER IV insulin, D50, bicarbonate IV. Problems (1) Hyperkalemia Improved to 5.4 Most likely secondary to medication side effect superimposed with kidney failure Patient took valsartan and spironolactone BMP every 4 hours We repeated bicarbonate, IV insulin, D50, Kayexalate in the morning (2) Renal failure Most likely secondary to dehydration due to intensive diuresis Gentle IV fluid, torsemide, spironolactone, valsartan on hold Nephrology team on board (3) Metabolic encephalopathy Most likely secondary to medication side effect, recently the dose of opioids were increased Alprazolam on hold I reduced the dose of pain meds CT head negative, neurological exam benign (4) Type 2 diabetes mellitus Insulin sliding scale Diabetes diet (5) Atrial fibrillation Heart rate under control INR subtherapeutic 1.6 on the admission I increased the dose of Coumadin yesterday. Await INR (6) Hyperlipidemia Continue statin (7) GERD (gastroesophageal reflux disease) Continue PPI (8) Hypothyroidism Continue levothyroxine VS,Fishbone, I+O VS, Fishbone, I+O Laboratory Tests 10/18/20 15:07 10/18/20 18:02 10/18/20 21:55 10/19/20 01:53 10/19/20 06:32 10/19/20 09:27 Vital Signs Date Time Temp Pulse Resp B/P (MAP) Pulse Ox O2 Delivery O2 Flow Rate FiO2 10/19/20 06:00 98.3 74 18 117/53 (74) 95 Room Air I&O- Last 24 Hours up to 6 AM 10/19/20 05:59 Intake Total 1430 ml Output Total 300 ml Balance 1130 ml TRACY COLLAZO DO Oct 19, 2020 13:31
[2020-10-19 14:00] VITALS: BP 134/65
[2020-10-19 15:27] LABS: CALCIUM LEVEL 8.5 MG/DL (8.8-10.2); CREATININE FOR GFR 1.39 MG/DL (0.70-1.30); GLOMERULAR FILTRATION RATE 53.2 (>42); POTASSIUM SERUM 5.2 MEQ/L (3.5-5.1)
[2020-10-19 15:28] LABS: CALCIUM LEVEL 8.7 MG/DL (8.8-10.2); CREATININE FOR GFR 1.44 MG/DL (0.70-1.30); GLOMERULAR FILTRATION RATE 51.1 (>42); PHOSPHORUS LEVEL 3.2 MG/DL (2.5-4.9); POTASSIUM SERUM 5.2 MEQ/L (3.5-5.1)
[2020-10-19] MEDS: WARFARIN SOD 3MG TAB PO SCH (16:57)
[2020-10-19 18:29] LABS: INR 2.72; PROTHROMBIN TIME 29.5 SECONDS (12.5-14.3)
--- NOTE | 2020-10-19 18:50 | ECGEPIP ---
[facility] Test Date: 2020-10-19 Pat Name: JOSUÉ FABIAN Department: Room: [place] [id number] Gender: Male Application Coordinator: TAI : 1945 Requested By: TRACY COLLAZO Order Number: [id number] Reading MD: Elliot Boyer Measurements Intervals [place] Rate: 68 P: [place]: QRS: -38 QRSD: 136 T: 109 QT: 380 QTc: 404 Interpretive Statements Atrial fibrillation Left axis deviation Left bundle branch block Delayed anterior R wave progression Similar to tracing done 07-04-17 Electronically Signed on 10-19-2020 18:49:51 EDT by Elliot Boyer
--- NOTE | 2020-10-19 20:15 | CR ---
NEPHROLOGY CONSULTATION DATE: 10/19/2020 REQUESTING PHYSICIAN: Dr. Milton Blood CONSULTING PHYSICIAN: Dr. Jose Thibodeaux REASON FOR CONSULTATION: Management of acute renal failure and hyperkalemia. CHIEF COMPLAINT: The patient presented to the hospital yesterday with forgetfulness, slurred speech. HISTORY OF PRESENT ILLNESS: Ayo Thornton is a 74-year-old male with a past medical history of diabetes mellitus type 2, hypertension, congestive heart failure. No significant known history of kidney disease. Latest creatinine as per our records in January 2019 was 0.8. He recently had aortic valve replacement at [facility]. He has history of atrial fibrillation, status post pacemaker, multiple other comorbidities as mentioned below. He was brought into the Emergency Room with altered mental status and confusion, being forgetful. He had a slurred speech. There was no history of nausea, vomiting, diarrhea or fevers. In the Emergency Room the patient was found to have acute renal failure with a creatinine of 2.3 and a potassium of 6.4. There were no acute EKG changes. He was admitted under the Hospitalist Service last night. The case was discussed with myself. Of note, the patient was receiving angiotensin receptor robin and Spironolactone along with Metformin as an outpatient. Decision was made to hydrate the patient and stop his diuretics and angiotensin receptor blockers. The patient was seen and examined by myself in the guidance director today. He is awake and alert. He was able to answer questions. He is feeling better today. His hyperkalemia is getting better, however the patient reports that he has not had any bowel movements so far. The patient already received insulin D50 bicarbonate yesterday and today morning as well. He was also given a dose of Kayexalate in the morning and yesterday as well. PAST MEDICAL HISTORY: The patient's past medical history is significant for: 1. Atrial fibrillation, status post pacemaker. 2. Depression. 3. Diabetes mellitus type 2, non insulin dependent. 4. History of obstructive sleep apnea. 5. Uses oxygen at home. 6. Hyperlipidemia. 7. Hypertension. 8. Congestive heart failure. 9. Benign prostatic hypertrophy. 10. Overactive bladder. 11. Osteoarthritis. 12. Migraine headaches. 13. Hypothyroidism. PAST SURGICAL HISTORY: The patient's past surgical history is significant for: 1. Status post aortic valve replacement with ascending aorta replacement recently, last month on September 30, 2020 at [facility]. ALLERGIES: He is allergic to: 1. Penicillins. 2. Morphine. FAMILY HISTORY: No significant family history of end-stage renal disease requiring hemodialysis. SOCIAL HISTORY: There is no history of smoking, illicit drug abuse or alcohol abuse. REVIEW OF SYSTEMS: Constitutional: He denies any fevers or chills. Eyes: He denies any blurry vision, double vision. ENT: He denies any dysphagia or odynophagia. Cardiovascular: He denies any chest pain. He does report recent aortic valve replacement. Respiratory: He denies any shortness of breath. GI: He denies any nausea or vomiting. Genitourinary: He denies any dysuria or hematuria. Musculoskeletal: He denies any muscle aches and pains. Skin: He denies any rashes or ulcers. Hematological/Oncological: He denies any easy bleeding or bruising. VENDING MACHINE REFILLER: He denies any strokes or seizures or muscle weakness. All other review of systems is negative. PHYSICAL EXAMINATION: GENERAL APPEARANCE: The patient is awake, alert, oriented x3, laying in bed in no apparent distress. VITAL SIGNS: Temperature is 99.2 degrees Fahrenheit, blood pressure 134/65, pulse is 70.7, respiratory rate of 18, saturating 94% on room air. HEAD AND NECK: Extraocular muscles intact. Pupils are equally round and reactive to light. Mucous membranes are moist. Neck is supple. There is mildly elevated jugular venous distention. CARDIOVASCULAR: S1, S2, mechanical aortic valve click is noted. RESPIRATORY: Chest is clear to auscultation bilaterally. Bilaterally currently no rales or rhonchi. ABDOMEN: Soft, positive bowel sounds, nontender, no organomegaly. MUSCULOSKELETAL: No clubbing, no cyanosis. Pulses are 2+. VENDING MACHINE REFILLER: No focal deficits. Power is 5/5 in all extremities. LABORATORY REVIEW: CBC showed a WBC of 6.9, hemoglobin 8.9, platelet count 220. INR is 2.7. BMP on arrival was: Sodium 134, potassium 6.4, chloride 106, bicarbonate 19, BUN 55, creatinine is 2.3. Calcium 8.5, TSH 6.9, troponin 0.04. BMP done today afternoon is: Sodium 139, potassium 5.2, chloride 107, bicarbonate 27, BUN 43, creatinine is 1.39. It was 2.3 yesterday. Calcium was 8.5. Microbiology - respiratory viral panel is negative. IMAGING DATA: A chest x-ray was done yesterday which showed no acute cardiopulmonary findings, chronic cardiomegaly. Pacemaker is unchanged. Interim cardiac valve replacement and left atrial appendage clip placement and surgical clips in the right axilla. HOME MEDICATIONS: 1. The patient was on Alprazolam at home. 2. Aspirin 81 mg daily. 3. CBD oil. 4. Dicyclomine 40 mg p.o. daily and 20 mg q. h.s. 5. Digoxin 125 mcg p.o. daily. 6. Finasteride 5 mg p.o. daily. 7. Levothyroxine 137 mcg p.o. daily. 8. Metformin 1,500 mg in the evening. 9. Myrbetriq 50 mg p.o. daily. 10. Mirtazapine 15 mg q. h.s. 11. Multivitamin one tablet daily. 12. Omeprazole 20 mg p.o. daily. 13. Oxycodone p.r.n. 14. Rosuvastatin 10 mg q. h.s. 15. Zoloft 20 mg p.o. daily. 16. Spironolactone 25 mg p.o. daily. 17. Flomax 0.8 mg p.o. daily. 18. Torsemide 10 mg p.o. daily. 19. Valsartan 320 mg p.o. daily. 20. Warfarin 3 mg q. h.s. 21. Zonisamide 100 mg p.o. twice daily along with 50 mg p.o. twice daily. CURRENT INPATIENT MEDICATIONS: The patient's medications include: 1. Calcium Gluconate IV that was given. 2. He was getting normal saline 100 mL an hour. 3. Albuterol nebulizations. 4. Aspirin 81 mg p.o. daily. 5. Dextrose was given with insulin yesterday. 6. Digoxin 125 mcg p.o. daily. 7. Finasteride 5 mg p.o. daily. 8. He was given one dose of Lasix 40 mg IV yesterday. I gave him on dose today morning. 9. He is getting Dilaudid p.r.n. 10. Levothyroxine 137 mcg p.o. daily. 11. Omeprazole 20 mg p.o. daily. 12. Miralax one dose was given by myself. 13. Zoloft 200 mg p.o. daily. 14. He was given Kayexalate 15 grams p.o. yesterday and another dose was given today morning. 15. Flomax 0.8 mg p.o. daily. 16. Warfarin 3 mg p.o. daily. ASSESSMENT AND PLAN: A 74-year-old male with a history of aortic valve replacement last month, hypertension, congestive heart failure, hypothyroidism, non insulin dependent diabetes, admitted this time with acute renal failure and hyperkalemia with altered mental status. PLAN: 1. Acute renal failure most likely it is associated with multiple medications including angiotensin receptor blockers, loop diuretics, Spironolactone. The patient was given gentle IV fluid hydration. His creatinine is getting better. Nephrotoxic medications are on hold. 2. Hyperkalemia it is secondary to acute renal failure, use of angiotensin receptor blockers and Spironolactone. He was already given insulin, d50, calcium gluconate, and doses of Kayexalate. The patient has not moved his bowels since yesterday. I would avoid giving further doses of Kayexalate. I want the patient to have a bowel movement. He was given a dose of Miralax in the morning. Potassium levels are within the acceptable range for now. 3. Diabetes mellitus type 2 - continue insulin sliding scale. Avoid use of Metformin in this patient at this time with acute renal failure. 4. Congestive heart failure - The patient is in no signs of fluid of overload at this time. He was already given Lasix yesterday. Another dose was given today. Hold Spironolactone at this time because of hyperkalemia. 5. Atrial fibrillation - heart rate is controlled. He is on Coumadin. INR is therapeutic. Thank you for involving me in the care of this patient. I shall be happy to follow the patient along with you tomorrow morning.
[2020-10-19] MEDS: ROSUVASTATIN 10 MG TAB (CRESTOR) PO SCH (21:37)
[2020-10-19] MEDS: DIGOXIN 0.125 MG TAB PO SCH (21:37)
[2020-10-19] MEDS: ACETAMINOPHEN TAB 650MG DOSE (2X325MG) PO PRN (21:37)
[2020-10-19 22:00] VITALS: BP 140/70
[2020-10-20] MEDS: LEVOTHYROXINE 137MCG TABLET (0.137MG) PO SCH (05:34)
[2020-10-20 06:00] VITALS: BP 145/87
[2020-10-20 06:01] LABS: RED BLOOD COUNT 3.56 10^6/uL (4.30-6.10); WHITE BLOOD COUNT 7.9 10^3/uL (4.0-10.0)
[2020-10-20 06:02] LABS: BASO % 0.4 % (0.0-1.0); EOS # 0.6 10^3/uL (0.0-0.5); EOS % 7.2 % (0.0-3.0); HEMATOCRIT 32.4 % (42.0-52.0); HEMOGLOBIN 10.3 g/dl (13.5-17.5); LYMPH # 1.4 10^3/uL (1.5-5.0); LYMPH % 17.9 % (24.0-44.0); MEAN CORPUSCULAR HEMOGLOBIN 28.9 pg (27.0-33.0); MEAN CORPUSCULAR HGB CONC 31.8 g/dl (32.0-36.5); MONO # 0.7 10^3/uL (0.0-0.8); MONO % 8.2 % (2.0-8.0); NEUTROPHILS # 5.2 10^3/uL (1.5-8.5); NEUTROPHILS % 65.9 % (36.0-66.0); PLATELET COUNT, AUTOMATED 234 10^3/uL (150-450)
[2020-10-20 06:31] LABS: ALBUMIN 3.2 GM/DL (3.2-5.2); BLOOD UREA NITROGEN 34 MG/DL (7-18); CALCIUM LEVEL 9.4 MG/DL (8.8-10.2); CARBON DIOXIDE LEVEL 27 MEQ/L (21-32); CHLORIDE LEVEL 106 MEQ/L (98-107); CREATININE FOR GFR 1.09 MG/DL (0.70-1.30); GLOMERULAR FILTRATION RATE > 60.0 (>42); GLUCOSE, FASTING 145 MG/DL (70-100); PHOSPHORUS LEVEL 3.4 MG/DL (2.5-4.9); POTASSIUM SERUM 4.6 MEQ/L (3.5-5.1); SODIUM LEVEL 140 MEQ/L (136-145)
[2020-10-20] MEDS: HumaLOG INSULIN (NovoLOG) PER UNIT SC SCH ×2 (09:20→13:06)
[2020-10-20] MEDS: TAMSULOSIN 0.4 MG CAP PO SCH (09:21)
[2020-10-20] MEDS: SERTRALINE 100 MG TAB PO SCH (09:21)
[2020-10-20] MEDS: OMEPRAZOLE 20 MG CAP PO SCH (09:21)
[2020-10-20] MEDS: FINASTERIDE 5 MG TAB PO SCH (09:21)
[2020-10-20] MEDS: ASPIRIN 81MG ENTERIC TABLET PO SCH (09:21)
[2020-10-20] MEDS: ACETAMINOPHEN TAB 650MG DOSE (2X325MG) PO PRN (09:22)
[2020-10-20] MEDS ORDERED: oxyCODONE 10 MG CR TAB PO PRN (10:10)
[2020-10-20] MEDS ORDERED: VALS1TAB67 PO (10:30)
[2020-10-20] MEDS ORDERED: TORSEMIDE 10 MG TABLET PO SCH (12:35)
--- NOTE | 2020-10-20 15:35 | DS.PDOC ---
Discharge Summary General Date of Admission Oct 18, 2020 at 11:17 Date of Discharge 10/20/20 Discharge Summary PROCEDURES PERFORMED DURING STAY: [None]. ADMITTING DIAGNOSES: Hyperkalemia Renal failure Metabolic encephalopathy Type 2 diabetes mellitus Atrial fibrillation Hyperlipidemia GERD (gastroesophageal reflux disease) Hypothyroidism DISCHARGE DIAGNOSES: Hyperkalemia Renal failure Metabolic encephalopathy Type 2 diabetes mellitus Atrial fibrillation Hyperlipidemia GERD (gastroesophageal reflux disease) Hypothyroidism COMPLICATIONS/CHIEF COMPLAINT: Altered Mental Status Hyperkalemia Renal Failure. HISTORY OF PRESENT ILLNESS: Patient is 74 years old male with past medical history of aortic valve replacement, atrial fibrillation status post pacemaker placement, depression, type 2 diabetes, hyperlipidemia, hypertension, CHF presented to the hospital with altered mental status. According to his , in the morning patient became forgetful and had slurred speech. Patient didn't have any fever or chills. In didn't have nausea or vomiting. His altered mental status resolved in ER. Of note patient had aortic valve replacement with ascending aorta replacement on 09/30/20 in [facility]. Patient denied any focal weaknesses, headache, visual disturbances. In ER patient was found to have hemoglobin of 10.2 potassium 6.4, creatinine 2.3. EKG did not show any acute ischemic changes, paced rhythm. CT head negative for bleeding or acute ischemic changes. Patient received in ER IV insulin, D50, bicarbonate IV. HOSPITAL COURSE: During the hospital the following issues addressed (1) Hyperkalemia Improved to 5.4 Most likely secondary to medication side effect superimposed with kidney failure Patient took valsartan and spironolactone Patient received bicarbonate, IV insulin, D50, Kayexalate with positive effect DC spironolactone and reduced dose valsartan in the outpatient settings (2) Renal failure Most likely secondary to dehydration due to intensive diuresis Gentle IV fluid, torsemide, spironolactone, valsartan on hold (3) Metabolic encephalopathy Most likely secondary to medication side effect, recently the dose of opioids were increased Alprazolam on hold I reduced the dose of pain meds CT head negative, neurological exam benign (4) Type 2 diabetes mellitus Insulin sliding scale Diabetes diet (5) Atrial fibrillation Heart rate under control INR subtherapeutic 1.6 on the admission I increased the dose of Coumadin. Today INR therapeutic (6) Hyperlipidemia Continue statin (7) GERD (gastroesophageal reflux disease) Continue PPI (8) Hypothyroidism Continue levothyroxine DISCHARGE MEDICATIONS: Please see below. ALLERGIES: Please see below. PHYSICAL EXAMINATION ON DISCHARGE: GENERAL APPEARANCE: NAD HEENT: no scleral icterus, no JVD, EOMI CARDIOVASCULAR: Aortic systolic murmur, S1-S2 LUNGS: CTA ABDOMEN: soft & not tender w palpitation MUSCULOSKELETAL: no cyanosis, no swelling INTEGUMENT: no generalized pallor NEUROLOGICAL: cranial nerve function from 2-12 intact intact, follows commands, speech not dysarthric LABORATORY DATA: Please see below. IMAGING: See above PROGNOSIS: Fair ACTIVITY: [As tolerated]. DIET: Cardiac DISPOSITION: Home, Self-Care. DISCHARGE INSTRUCTIONS: Close follow-up with PCP in 2-3 days, stop spironolactone, discuss cardiac medications with plumbing assembler in the light of hyperkalemia ITEMS TO FOLLOWUP ON ON OUTPATIENT: Follow-up with PCP DISCHARGE CONDITION: [Stable]. TIME SPENT ON DISCHARGE: 40minutes. Vital Signs/I&Os Vital Signs Date Time Temp Pulse Resp B/P (MAP) Pulse Ox O2 Delivery O2 Flow Rate FiO2 10/20/20 11:00 18 10/20/20 06:00 97.2 74 145/87 (106) 98 Room Air I&O- Last 24 Hours up to 6 AM 10/20/20 06:00 Intake Total 2040 ml Output Total 3425 ml Balance -1385 ml Laboratory Data Labs 24H Laboratory Tests 2 10/19/20 16:32: Bedside Glucose (Misc Panel) 107 10/19/20 18:03: Prothrombin Time 29.5H, Prothromb Time International Ratio 2.72 10/19/20 21:11: Bedside Glucose (Misc Panel) 167H 10/20/20 05:42: Immature Granulocyte % (Auto) 0.4, Neutrophils (%) (Auto) 65.9, Lymphocytes (%) (Auto) 17.9L, Monocytes (%) (Auto) 8.2H, Eosinophils (%) (Auto) 7.2H, Basophils (%) (Auto) 0.4, Neutrophils # (Auto) 5.2, Lymphocytes # (Auto) 1.4L, Monocytes # (Auto) 0.7, Eosinophils # (Auto) 0.6H, Basophils # (Auto) 0.0, Nucleated Red Blood Cells % (auto) 0.0, Anion Gap 7L, Glomerular Filtration Rate > 60.0, Calcium Level 9.4, Phosphorus Level 3.4, Magnesium Level 2.0, Albumin 3.2 10/20/20 11:39: Bedside Glucose (Misc Panel) 129H CBC/BMP Laboratory Tests 10/20/20 05:42 FSBS Laboratory Tests Test 10/19/20 16:32 10/19/20 21:11 10/20/20 11:39 Range/Units Bedside Glucose (Misc Panel) 107 167 129 83-110 MG/DL Microbiology Microbiology 10/18/20 Respiratory Virus Panel (PCR) (SARAH) - Final, Complete 10/18/20 Blood Culture - Preliminary, Resulted No Growth after 48 hours. All Specime... 10/18/20 Blood Culture - Preliminary, Resulted No Growth after 48 hours. All Specime... Discharge Medications Scheduled Aspirin (Aspirin EC) 81 Mg Tablet.dr, 81 MG PO DAILY, (Reported) Dicyclomine HCl (Dicyclomine HCl) 20 Mg Tab, 40 MG PO DAILY, (Reported) Dicyclomine HCl (Dicyclomine HCl) 20 Mg Tablet, 20 MG PO QHS, (Reported) Digoxin (Digoxin) 125 Mcg Tablet, 125 MCG PO QPM, (Reported) Finasteride (Finasteride) 5 Mg Tab, 5 MG PO DAILY, (Reported) Levothyroxine Sodium (Synthroid) 137 Mcg Tablet, 137 MCG PO DAILY, (Reported) Metformin HCl (Metformin HCl ER) 750 Mg Tab, 1,500 MG PO QPM, (Reported) Mirabegron (Myrbetriq) 50 Mg Tab.er.24h, 50 MG PO DAILY, (Reported) Mirtazapine (Mirtazapine) 15 Mg Tab, 15 MG PO QHS, (Reported) Multivitamins (Thera M Plus Tablet) 1 Tab Tab, 1 TAB PO DAILY, (Reported) Omeprazole (Omeprazole) 20 Mg Cap, 20 MG PO DAILY, (Reported) Rosuvastatin Calcium (Crestor) 10 Mg Tab, 10 MG PO QHS, (Reported) Sertraline Hcl (Zoloft) 100 Mg Tablet, 200 MG PO DAILY, (Reported) Tamsulosin HCl (Flomax) 0.4 Mg Cap, 0.8 MG PO DAILY, (Reported) Torsemide (Torsemide) 20 Mg Tab, 10 MG PO DAILY, (Reported) Valsartan (Valsartan) 160 Mg Tablet, 1 TAB PO DAILY Warfarin Sodium (Warfarin Sodium) 3 Mg Tablet, 3 MG PO QPM, (Reported) Zonisamide (Zonisamide) 100 Mg Cap, 100 MG PO BID, (Reported) TAKE WITH 50MG CAP. TOTAL OF 150MG Zonisamide (Zonisamide) 50 Mg Capsule, 50 MG PO BID, (Reported) TAKE WITH 100MG CAP. TOTAL OF 150MG Scheduled PRN Alprazolam (Xanax) 0.5 Mg Tab, 0.5 MG PO 5XD PRN for ANXIETY, (Reported) Oxycodone HCl (Oxycontin) 20 Mg Tab.er.12h, 20 MG PO BID PRN for PAIN, (Reported) Oxycodone HCl/Acetaminophen (Oxycodone-Acetaminophen 5-325) 1 Each Tablet, 2 TAB PO Q6H PRN for PAIN, (Reported) Allergies Coded Allergies: Penicillins (Verified Allergy, Intermediate, SWELLING & HIVES, 10/18/20) morphine (Verified Adverse Reaction, Unknown, CONFUSED, 10/18/20) TRACY COLLAZO DO Oct 20, 2020 15:35
--- NOTE | 2020-10-21 09:06 | IPN ---
PROGRESS NOTE DATE: 10/20/2020 SUBJECTIVE: The patient was seen and examined at the bedside today morning. He is afebrile and hemodynamically stable. His renal function is improving. Creatinine is improved to 1. He has adequate urine output. He made about 3 liters of urine yesterday. Hyperkalemia is also better. Patient also had bowel movements and reports that he is feeling better to be discharged home today. OBJECTIVE: VITAL SIGNS: Temperature is 97.2 degrees Fahrenheit, blood pressure is 145/87, pulse is 74, respiratory rate is 18, saturating 98% on room air. INTAKE AND OUTPUT: Urine output recorded as 2.9 liters yesterday, 1.2 liters so far today in the morning. Weight on the bed scale is 109 kg. GENERAL: The patient is alert, oriented x3, laying in bed in apparent distress. HEAD AND NECK: Extraocular muscles are intact. Pupils equally round and reactive to light. HEENT: Mucous membranes are moist. NECK: Supple. There is no JVD. CARDIOVASCULAR: S1 and S2, regular rate. A recent surgical scar in the right anterior chest wall was noted. RESPIRATORY: Chest is clear to auscultation bilaterally. ABDOMEN: Soft, positive bowel sounds, nontender. MUSCULOSKELETAL: No clubbing or cyanosis. Pulses are 2+. INSTRUCTIONAL SUPPORT SPECIALIST: No focal deficit. Power is 5/5 in all extremities. LABORATORY DATA: CBC showed a WBC of 7.9, hemoglobin 10.3, platelets are 234,000. BMP showed a sodium of 140, potassium 4.6, chloride 106, bicarbonate 27, BUN 34, creatinine is 1.09. Calcium is 9.4. Phosphorus is 3.4. Magnesium is 2. CURRENT INPATIENT MEDICATIONS: The patient's medications were all reviewed by myself. He has been started on torsemide 10 mg p.o. daily by myself. No other changes in the medications today as compared with yesterday. ASSESSMENT AND PLAN: 1. Acute renal failure. Patient's renal function is improved with a creatinine of 1 today. Angiotensin receptor blockers and diuretics were held. He was given IV fluid hydration. He will need to follow-up with the Nephrology service as an outpatient. 2. Hyperkalemia, it is resolved now with the use of Kayexalate, IV fluids, and stopping the Spironolactone and angiotensin receptor robin. No further need of Kayexalate administration at this time. 3. Diabetes mellitus Type 2. Avoid use of Metformin on discharge at this time. 4. Congestive heart failure. Patient recently had aortic valve replaced. I have restarted the patient on Torsemide 10 mg daily, avoid the use of spironolactone at this time since he just recovered from hyperkalemia. 5. Atrial fibrillation, heart rate is controlled. INR is therapeutic with coumadin. 6. Disposition: Patient is okay to be discharged from a nephrology standpoint. He will need to follow-up with Nephrology within two weeks after discharge from the hospital.
== END 2020-10-20 13:55 | disposition home or self-care (01) ==
LOC: M ED 11:16 → M ED INP 11:17 → UNDOADMOB 13:48 → M ED INP 13:48 → ENRESERV 15:32 → M MSPAV 15:53
PROVIDERS: ADMIT Internal Medicine; ATTEND Internal Medicine
DX: E87.5 Hyperkalemia (principal); N17.8 Other acute kidney failure; G92 Toxic encephalopathy; E11.9 Type 2 diabetes mellitus without complications; I48.91 Unspecified atrial fibrillation; E78.5 Hyperlipidemia, unspecified; K21.9 Gastro-esophageal reflux disease without esophagitis; R41.82 Altered mental status, unspecified; R47.81 Slurred speech; I11.0 Hypertensive heart disease with heart failure; I50.9 Heart failure, unspecified; Z95.2 Presence of prosthetic heart valve; Z95.0 Presence of cardiac pacemaker; F32.9 Major depressive disorder, single episode, unspecified; G47.33 Obstructive sleep apnea (adult) (pediatric); Z99.81 Dependence on supplemental oxygen; N40.0 Benign prostatic hyperplasia without lower urinary tract symptoms; E03.9 Hypothyroidism, unspecified; N32.81 Overactive bladder; M19.90 Unspecified osteoarthritis, unspecified site; G43.909 Migraine, unspecified, not intractable, without status migrainosus; Z79.899 Other long term (current) drug therapy; Z79.82 Long term (current) use of aspirin; Z79.84 Long term (current) use of oral hypoglycemic drugs; Z79.01 Long term (current) use of anticoagulants; Z88.0 Allergy status to penicillin; Z88.5 Allergy status to narcotic agent
CPT/HCPCS: 36415; 70450; 71045; 80047; 80053; 80069; 80076; 80143; 82077; 82140; 82550; 82553; 83605; 83735; 84443; 84484; 85025; 85027; 85610; 85730; 86850; 86900; 86901; 87040; 87798; 93005; 93041; 94760; 96365; 96366; 96375; 96376; 97161; 97165; 97530; 99285; G0378; J0610; J1940

== ENCOUNTER → 2020-11-03 | Outpatient (REF) | payer MEDICARE, OTHER ==
[~2020-11-03] MED LIST changes: +ALPR1TAB6 PO; +ASPI81TA26 PO; +CBD OIL; +DIGO0.123 PO; +MYRB50TA PO; +OXYC20TA40 PO; +SPIR-10 PO; +SYNT137T7 PO; +VALS1TAB67 PO; +VALS1TAB68 PO; +WARF-58 PO; +ZOLO100T PO; +ZONI50CA PO
[2020-11-03 15:33] LABS: HEMATOCRIT 31.6 % (42.0-52.0); HEMOGLOBIN 9.7 g/dl (13.5-17.5); MEAN CORPUSCULAR HGB CONC 30.7 g/dl (32.0-36.5); MEAN CORPUSCULAR VOLUME 94.3 fl (80.0-96.0); PLATELET COUNT, AUTOMATED 240 10^3/uL (150-450); RED BLOOD COUNT 3.35 10^6/uL (4.30-6.10); WHITE BLOOD COUNT 11.1 10^3/uL (4.0-10.0)
[2020-11-03 15:38] LABS: CALCIUM LEVEL 9.1 MG/DL (8.8-10.2); CREATININE FOR GFR 1.74 MG/DL (0.70-1.30); GLOMERULAR FILTRATION RATE 40.9 (>42); MAGNESIUM LEVEL 2.4 MG/DL (1.8-2.4); POTASSIUM SERUM 5.8 MEQ/L (3.5-5.1)
[2020-11-03 15:44] LABS: INR 1.7; PROTHROMBIN TIME 20.3 SECONDS (12.5-14.3)
== END ==
LOC: M LABDRWAD 14:50
PROVIDERS: ATTEND Physician Assistant
DX: I48.21 Permanent atrial fibrillation (principal); R06.02 Shortness of breath; I50.32 Chronic diastolic (congestive) heart failure

== ENCOUNTER 2020-11-04 14:47 | Inpatient (IN) | payer MEDICARE, OTHER ==
[~2020-11-04] VITALS: Ht 188 cm; Wt 113.6 kg
[2020-11-04] MEDS ORDERED: BISO5TAB14 PO (15:01)
[2020-11-04 16:28] LABS: BASO % 0.2 % (0.0-1.0); EOS # 0.3 10^3/uL (0.0-0.5); EOS % 3.4 % (0.0-3.0); HEMATOCRIT 28.9 % (42.0-52.0); HEMOGLOBIN 8.9 g/dl (13.5-17.5); LYMPH # 0.8 10^3/uL (1.5-5.0); LYMPH % 10.2 % (24.0-44.0); MEAN CORPUSCULAR HEMOGLOBIN 28.4 pg (27.0-33.0); MEAN CORPUSCULAR HGB CONC 30.8 g/dl (32.0-36.5); MEAN CORPUSCULAR VOLUME 92.3 fl (80.0-96.0); MONO # 0.6 10^3/uL (0.0-0.8); MONO % 6.8 % (2.0-8.0); NEUTROPHILS # 6.5 10^3/uL (1.5-8.5); NEUTROPHILS % 79.2 % (36.0-66.0); PLATELET COUNT, AUTOMATED 234 10^3/uL (150-450); RED BLOOD COUNT 3.13 10^6/uL (4.30-6.10); WHITE BLOOD COUNT 8.2 10^3/uL (4.0-10.0)
[2020-11-04 16:46] LABS: BILIRUBIN,DIRECT 0.2 MG/DL (0.0-0.2); BILIRUBIN,TOTAL 0.3 MG/DL (0.2-1.0); CREATININE FOR GFR 1.38 MG/DL (0.70-1.30); GLOMERULAR FILTRATION RATE 53.5 (>42); POTASSIUM SERUM 5.7 MEQ/L (3.5-5.1); TOTAL PROTEIN 6.5 GM/DL (6.4-8.2)
--- NOTE | 2020-11-04 17:08 | REP ---
INDICATION: SOB COMPARISON: 10/18/2020 TECHNIQUE: Portable AP view of the chest FINDINGS: Mediastinum and cardiac silhouette are stable with cardiomegaly again identified. Evidence for prior pacemaker and cardiac valve repair. Lung robert demonstrate chronic changes. There is blunting of the right costophrenic angle raising the possibility of small effusion. No pneumothorax. IMPRESSION: Possible small right pleural effusion. <Electronically signed by Catrachito Salcido > 11/04/20 1950
[2020-11-04] MEDS ORDERED: GLUCOSE 4GM CHEW TABLET PO PRN (18:55)
[2020-11-04] MEDS ORDERED: GLUCAGON INJ 1MG VIAL SC PRN (18:55)
[2020-11-04] MEDS ORDERED: SOD POLYSTYRENE SULFONATE SUSP 15 GM/60 ML UD PO ONE (18:55)
[2020-11-04] MEDS ORDERED: DEXTROSE 50% 50 ML SYRINGE IV PRN (18:55)
[2020-11-04] MEDS ORDERED: PERCOCET 5MG/325MG TAB PO PRN (19:05)
[2020-11-04] MEDS ORDERED: VALS1TAB67 PO (19:11)
[2020-11-04 19:42] LABS: RSV AMPLIFICATION NEGATIVE (NEGATIVE)
--- NOTE | 2020-11-04 19:59 | HPEPDOC ---
General Date of Admission Nov 04, 2020 at 14:48 Date of Service: Nov 04, 2020 Chief Complaint The patient is a 75-year-old male admitted with a reason for visit of Anemia,Hyperkalemia. Source: Patient History of Present Illness Mr. Thornton is a 75 year old male with atrial fibrillation, hypertension, CKD, and recent aortic valve replacement who presents with abnormal labs. He was recently admitted on 10/18/2020 to 10/20/2020 for AMS and hyperkalemia. His spironolactone was discontinued and valsartan was decreased. He was sent home. At home he was improving mentally, but still was not physically back at baseline. The past few days, he has been feeling more short of breath. He denies fever, cough, or lightheadedness, but would have exhaustion on exertion. He had labs done on Tuesday which demonstrated anemia and hyperkalemia. Patient was instructed to come to the ED. Patient was present in the ED with . Mentally and physically, he is better, but not yet at baseline. Lungs sound clear. Otherwise, he denies any hemoptysis, melena, hematochezia, or changes in color of stool. Patient will be placed in observation for anemia and hyperkalemia Home Medications Scheduled Aspirin (Aspirin EC) 81 Mg Tablet.dr, 81 MG PO DAILY, (Reported) Bisoprolol Fumarate (Bisoprolol Fumarate) 5 Mg Tablet, 10 MG PO DAILY, (Reported) Dicyclomine HCl (Dicyclomine HCl) 20 Mg Tab, 40 MG PO DAILY, (Reported) Dicyclomine HCl (Dicyclomine HCl) 20 Mg Tablet, 20 MG PO QHS, (Reported) Digoxin (Digoxin) 125 Mcg Tablet, 125 MCG PO DAILY, (Reported) Finasteride (Finasteride) 5 Mg Tab, 5 MG PO DAILY, (Reported) Levothyroxine Sodium (Synthroid) 137 Mcg Tablet, 137 MCG PO DAILY, (Reported) Metformin HCl (Metformin HCl ER) 750 Mg Tab, 1,500 MG PO QPM, (Reported) Mirabegron (Myrbetriq) 50 Mg Tab.er.24h, 50 MG PO DAILY, (Reported) Mirtazapine (Mirtazapine) 15 Mg Tab, 15 MG PO QHS, (Reported) Multivitamins (Thera M Plus Tablet) 1 Tab Tab, 1 TAB PO DAILY, (Reported) Omeprazole (Omeprazole) 20 Mg Cap, 20 MG PO DAILY, (Reported) Rosuvastatin Calcium (Crestor) 10 Mg Tab, 10 MG PO QHS, (Reported) Sertraline Hcl (Zoloft) 100 Mg Tablet, 200 MG PO DAILY, (Reported) Tamsulosin HCl (Flomax) 0.4 Mg Cap, 0.8 MG PO DAILY, (Reported) Torsemide (Torsemide) 20 Mg Tab, 10 MG PO DAILY, (Reported) Valsartan (Valsartan) 160 Mg Tablet, 160 MG PO DAILY, (Reported) Warfarin Sodium (Warfarin Sodium) 3 Mg Tablet, 3 MG PO QPM, (Reported) Zonisamide (Zonisamide) 100 Mg Cap, 100 MG PO BID, (Reported) TAKE WITH 50MG CAP. TOTAL OF 150MG Zonisamide (Zonisamide) 50 Mg Capsule, 50 MG PO BID, (Reported) TAKE WITH 100MG CAP. TOTAL OF 150MG Scheduled PRN Alprazolam (Xanax) 0.5 Mg Tab, 0.5 MG PO 5XD PRN for ANXIETY, (Reported) Oxycodone HCl (Oxycontin) 20 Mg Tab.er.12h, 20 MG PO QID PRN for PAIN, (Reported) Oxycodone HCl/Acetaminophen (Oxycodone-Acetaminophen 5-325) 1 Each Tablet, 2 TAB PO Q6H PRN for PAIN, (Reported) Allergies Coded Allergies: Penicillins (Verified Allergy, Intermediate, SWELLING & HIVES, 10/18/20) morphine (Verified Adverse Reaction, Unknown, CONFUSED, 10/18/20) Past Medical History Medical History 1. Atrial fibrillation s/p pacemaker placement 2. Depression 3. NIDDM 4. GRETTA noncompliant with CPAP, but uses NC at night 5. Dyslipidemia 6. Hypertension 7. CHF 8. BPH 9. Overactive bladder 10. Dyslipidemia 11. Anxiety 12. OA of spine 13. Insomnia 14. Migraine headache 15. Hypertension 16. Hypothyroidism Surgical History 1. Aortic valve replacement 2. Hip replacement x3 3. Lumbar injection 4. Inguinal hernia repair x3 5. Pacemaker 6. Heart cath x2 to 3 7. Basal cell removed on nose Family History Mother: , history of diabetes mellitus Social History * Smoker: Denies Alcohol: Denies Drugs: denies A-FIB/CHADSVASC A-FIB History Current/History of A-Fib/PAF?: Yes Current PO Anticoag Therapy: Yes Review of Systems Constitutional: Denies: Chills, Fever Eyes: Denies: Vision change ENT: Denies: Sore Throat Skin: Denies: Rash Pulmonary: Reports: Dyspnea (on exertion); Denies: Cough Cardiovascular: Denies: Chest Pain Gastrointestinal: Denies: Nausea, Abdominal Pain, Diarrhea, Constipation Genitourinary: Denies: Dysuria Hematologic: Denies: Bruising Neurological: Denies: Numbness Psych: Reports: Anxiety Physical Examination General Exam: Positive: Alert, Cooperative Eye Exam: Positive: EOMI; Negative: Sclera icteric ENT Exam: Positive: Atraumatic Neck Exam: Positive: Supple Chest Exam: Positive: Clear to auscultation; Negative: Rales, Rhonchi, Wheezing Heart Exam: Positive: Rate Normal, Regular Rhythm Abdomen Exam: Positive: Normal bowel sounds, Soft; Negative: Tenderness Extremity Exam: Negative: Edema Neuro Exam: Positive: Normal Speech, Cranial Nerves 3-12 NL Psych Exam: Positive: Mental status NL, Mood NL, Oriented x 3 Vital Signs Vital Signs Date Time Temp Pulse Resp B/P (MAP) Pulse Ox O2 Delivery O2 Flow Rate FiO2 11/04/20 15:53 11/04/20 14:48 97.3 82 18 95 Room Air Laboratory Data Labs 24H Laboratory Tests 2 11/04/20 16:03: Immature Granulocyte % (Auto) 0.2, Neutrophils (%) (Auto) 79.2H, Lymphocytes (%) (Auto) 10.2L, Monocytes (%) (Auto) 6.8, Eosinophils (%) (Auto) 3.4H, Basophils (%) (Auto) 0.2, Neutrophils # (Auto) 6.5, Lymphocytes # (Auto) 0.8L, Monocytes # (Auto) 0.6, Eosinophils # (Auto) 0.3, Basophils # (Auto) 0.0, Nucleated Red Blood Cells % (auto) 0.0, Anion Gap 6L, Glomerular Filtration Rate 53.5, Calcium Level 9.0, Total Bilirubin 0.3, Direct Bilirubin 0.2, Aspartate Amino Transf (AST/SGOT) 41H, Alanine Aminotransferase (ALT/SGPT) 35, Alkaline Phosphatase 96, NB-Hzg-I-Type Natriuretic Peptide 7824H, Total Protein 6.5, Albumin 3.0L, Albumin/Globulin Ratio 0.9, Lipase 68L 11/04/20 18:43: CBC/BMP Laboratory Tests 11/04/20 16:03 Assessment/Plan Mr. Thornton is a 75 year old male with atrial fibrillation, hypertension, CKD, and recent aortic valve replacement who presents with abnormal labs. This may be due to the combination of CKD and valsartan. Will discontinue valsartan and give Kayexalate. Will need to continue monitoring potassium. Otherwise, will perform anemia work up. Plan / VTE VTE Prophylaxis Ordered?: Yes Plan Plan 1. Hyperkalemia -May be secondary to CKD and valsartan. -Discontinue valsartan -Give Kayexalate -Repeat BMP 2. Anemia -Patient is on Warfarin for aortic valve replacement -No obvious signs of bleeding, no melena or hematochezia -Anemia work up 3. Atrial fibrillation s/p pacemaker -Continue bisoprolol and digoxin -AC with warfarin 4. Recent aortic valve replacement -Bioprosthetic valve -Continue warfarin and aspirin 5. Hypothyroidism -Continue levothyroxine 6. Chronic pain -Continue pain regimen 7. BPH -Continue finasteride and tamsulosin 8. DVT ppx -Warfarin CARLI MCKENZIE DO Nov 04, 2020 19:36
[2020-11-04 20:00] LABS: INR 1.64; PROTHROMBIN TIME 19.8 SECONDS (12.5-14.3)
[2020-11-04] MEDS ORDERED: WARFARIN SOD 5MG TAB PO ONE (20:35)
[2020-11-04] MEDS ORDERED: oxyCODONE 20 MG CR TAB PO PRN (21:00)
[2020-11-04] MEDS: HumaLOG INSULIN (NovoLOG) PER UNIT SC SCH (22:17)
[2020-11-04] MEDS: MIRTAZAPINE 15 MG TAB PO SCH (22:24)
[2020-11-04] MEDS: ROSUVASTATIN 10 MG TAB (CRESTOR) PO SCH (22:24)
[2020-11-04] MEDS: DICYCLOMINE 10 MG CAP PO SCH (22:24)
[2020-11-04 23:19] LABS: HEMATOCRIT 29.1 % (42.0-52.0); MEAN CORPUSCULAR HEMOGLOBIN 28.5 pg (27.0-33.0); MEAN CORPUSCULAR HGB CONC 30.9 g/dl (32.0-36.5); MEAN CORPUSCULAR VOLUME 92.1 fl (80.0-96.0); PLATELET COUNT, AUTOMATED 231 10^3/uL (150-450); RED BLOOD COUNT 3.16 10^6/uL (4.30-6.10); WHITE BLOOD COUNT 7.4 10^3/uL (4.0-10.0)
[2020-11-04 23:45] LABS: CALCIUM LEVEL 9.1 MG/DL (8.8-10.2); CREATININE FOR GFR 1.38 MG/DL (0.70-1.30); GLOMERULAR FILTRATION RATE 53.5 (>42)
[2020-11-05 05:55] LABS: HEMOGLOBIN 9.7 g/dl (13.5-17.5); MEAN CORPUSCULAR HEMOGLOBIN 29.3 pg (27.0-33.0); MEAN CORPUSCULAR HGB CONC 31.3 g/dl (32.0-36.5); MEAN CORPUSCULAR VOLUME 93.7 fl (80.0-96.0); PLATELET COUNT, AUTOMATED 243 10^3/uL (150-450); RED BLOOD COUNT 3.31 10^6/uL (4.30-6.10); WHITE BLOOD COUNT 7.7 10^3/uL (4.0-10.0)
[2020-11-05 06:11] LABS: INR 1.75; PROTHROMBIN TIME 20.8 SECONDS (12.5-14.3)
[2020-11-05 06:32] LABS: BLOOD UREA NITROGEN 40 MG/DL (7-18); CALCIUM LEVEL 8.9 MG/DL (8.8-10.2); CARBON DIOXIDE LEVEL 29 MEQ/L (21-32); CHLORIDE LEVEL 108 MEQ/L (98-107); CREATININE FOR GFR 1.17 MG/DL (0.70-1.30); GLOMERULAR FILTRATION RATE > 60.0 (>42); GLUCOSE, FASTING 112 MG/DL (70-100); POTASSIUM SERUM 5.7 MEQ/L (3.5-5.1); SODIUM LEVEL 141 MEQ/L (136-145)
[2020-11-05] MEDS: LEVOTHYROXINE 137MCG TABLET (0.137MG) PO SCH (07:18)
[2020-11-05] MEDS ORDERED: PILL CUTTER 1 EACH XX ONE (07:33)
[2020-11-05] MEDS ORDERED: FUROSEMIDE 40MG/4ML VIAL (J1940) IV ONE (08:00)
[2020-11-05] MEDS: OMEPRAZOLE 20 MG CAP PO SCH (08:31)
[2020-11-05] MEDS: HumaLOG INSULIN (NovoLOG) PER UNIT SC SCH ×4 (08:31→20:23)
[2020-11-05] MEDS: MULTIVITAMINS/MINERALS THERAP 1 TAB PO SCH (08:31)
[2020-11-05] MEDS: ASPIRIN 81MG ENTERIC TABLET PO SCH (08:31)
[2020-11-05] MEDS: FINASTERIDE 5 MG TAB PO SCH (08:32)
[2020-11-05] MEDS: SERTRALINE 100 MG TAB PO SCH (08:32)
[2020-11-05] MEDS: TAMSULOSIN 0.4 MG CAP PO SCH (08:32)
[2020-11-05] MEDS: bisoproloL fumarate 5 MG TAB PO SCH (08:32)
[2020-11-05] MEDS: DICYCLOMINE 10 MG CAP PO SCH ×2 (08:35→20:20)
[2020-11-05] MEDS: DIGOXIN 0.125 MG TAB PO SCH (08:35)
[2020-11-05] MEDS ORDERED: TORSEMIDE 20 MG TAB PO SCH (09:00)
[2020-11-05] MEDS ORDERED: oxyCODONE 10 MG CR TAB PO PRN (10:40)
--- NOTE | 2020-11-05 11:05 | IPNPDOC ---
Subjective Date Seen The patient was seen on 11/05/20. Subjective Chief Complaint/HPI Mr. Thornton is a 75 year old male with atrial fibrillation, hypertension, CKD, and recent aortic valve replacement who presents with abnormal labs. Overnight, he hemoglobin improved and potassium improved. This morning, his potassium became elevated again. Otherwise, he was still in the ED when I saw him. Denies chest pain or dyspnea. Objective Physical Examination General Exam: Positive: Alert, Cooperative Eye Exam: Positive: EOMI; Negative: Sclera icteric ENT Exam: Positive: Atraumatic Neck Exam: Positive: Supple Chest Exam: Positive: Clear to auscultation; Negative: Rales, Rhonchi, Wheezing Heart Exam: Positive: Rate Normal, Regular Rhythm Abdomen Exam: Positive: Normal bowel sounds, Soft; Negative: Tenderness Extremity Exam: Negative: Edema Neuro Exam: Positive: Normal Speech, Cranial Nerves 3-12 NL Psych Exam: Positive: Mental status NL, Mood NL, Oriented x 3 Assessment /Plan Assessment Mr. Thornton is a 75 year old male with atrial fibrillation, hypertension, CKD, and recent aortic valve replacement who presents with abnormal labs. This may be due to the combination of CKD and valsartan. Will wait for valsartan to wash out from his system and continue monitoring potassium. Plan/VTE VTE Prophylaxis Ordered?: Yes Plan 1. Hyperkalemia -May be secondary to CKD and valsartan. -Discontinue valsartan -Potassium increased again today. Giving Lasix -Repeat BMP 2. Anemia -Patient is on Warfarin for aortic valve replacement -No obvious signs of bleeding, no melena or hematochezia -Anemia work up. Reticulocyte index of 0.55, he is hypoproliferating -Iron supplement and vitamin C 3. Atrial fibrillation s/p pacemaker -Continue bisoprolol and digoxin -AC with warfarin 4. Recent aortic valve replacement -Bioprosthetic valve -Continue warfarin and aspirin 5. Hypothyroidism -Continue levothyroxine 6. Chronic pain -Continue pain regimen 7. BPH -Continue finasteride and tamsulosin 8. DVT ppx -Warfarin VS, I&O, 24H, Fishbone Vital Signs/I&O Vital Signs Date Time Temp Pulse Resp B/P (MAP) Pulse Ox O2 Delivery O2 Flow Rate FiO2 11/05/20 10:31 57 18 102/51 (68) 96 Room Air 11/05/20 07:45 98.3 I&O- Last 24 Hours up to 6 AM 11/05/20 06:00 Output Total 600 ml Balance -600 ml Laboratory Data 24H LABS Laboratory Tests 2 11/04/20 16:03: Immature Granulocyte % (Auto) 0.2, Neutrophils (%) (Auto) 79.2H, Lymphocytes (%) (Auto) 10.2L, Monocytes (%) (Auto) 6.8, Eosinophils (%) (Auto) 3.4H, Basophils (%) (Auto) 0.2, Neutrophils # (Auto) 6.5, Lymphocytes # (Auto) 0.8L, Monocytes # (Auto) 0.6, Eosinophils # (Auto) 0.3, Basophils # (Auto) 0.0, Nucleated Red Blood Cells % (auto) 0.0, Prothrombin Time 19.8H, Prothromb Time International Ratio 1.64, Anion Gap 6L, Glomerular Filtration Rate 53.5, Calcium Level 9.0, To graciela Bilirubin 0.3, Direct Bilirubin 0.2, Aspartate Amino Transf (AST/SGOT) 41H, Alanine Aminotransferase (ALT/SGPT) 35, Alkaline Phosphatase 96, KM-Bvs-L-Type Natriuretic Peptide 7824H, Total Protein 6.5, Albumin 3.0L, Albumin/Globulin Ratio 0.9, Lipase 68L 11/04/20 18:43: Coronavirus (COVID-19)(PCR) NEGATIVE, Influenza Type A (RT-PCR) NEGATIVE, Influenza Type B (RT-PCR) NEGATIVE, Respiratory Syncytial Virus (PCR) NEGATIVE 11/04/20 21:46: Bedside Glucose (Misc Panel) 115H 11/04/20 22:57: Nucleated Red Blood Cells % (auto) 0.0, Anion Gap 7L, Glomerular Filtration Rate 53.5, Calcium Level 9.1, Reticulocyte # (auto) 37.9, Percent Reticulocyte Count 1.2, Reticulocyte Hemoglobin Equivalent 24.9, Iron Level 16L, Total Iron Binding Capacity 199L, Transferrin % Saturation 8.0L, Ferritin 326, Lactate Dehydrogenase 179, Vitamin B12 Level 442 11/05/20 05:44: Nucleated Red Blood Cells % (auto) 0.0, Prothrombin Time 20.8H, Prothromb Time International Ratio 1.75, Anion Gap 4L, Glomerular Filtration Rate > 60.0, Pk cium Level 8.9 11/05/20 07:41: Bedside Glucose (Misc Panel) 146H CBC/BMP Laboratory Tests 11/04/20 16:03 11/04/20 22:57 11/05/20 05:44 Microbiology Microbiology 11/04/20 Stool Occult Blood (SARAH), Received Pending CARLI MCKENZIE DO Nov 05, 2020 11:05
[2020-11-05] MEDS: ASCORBIC ACID 500 MG TAB PO SCH (12:41)
[2020-11-05] MEDS: oxyCODONE 10 MG CR TAB PO SCH ×2 (12:41→20:21)
[2020-11-05 14:00] VITALS: BP 132/84
[2020-11-05] MEDS: FERROUS GLUCONATE 324 MG TAB PO SCH (14:19)
[2020-11-05 14:38] LABS: BLOOD UREA NITROGEN 37 MG/DL (7-18); CALCIUM LEVEL 9.2 MG/DL (8.8-10.2); CARBON DIOXIDE LEVEL 27 MEQ/L (21-32); CHLORIDE LEVEL 105 MEQ/L (98-107); CREATININE FOR GFR 1.13 MG/DL (0.70-1.30); GLOMERULAR FILTRATION RATE > 60.0 (>42); GLUCOSE, FASTING 133 MG/DL (70-100); POTASSIUM SERUM 4.7 MEQ/L (3.5-5.1); SODIUM LEVEL 140 MEQ/L (136-145)
[2020-11-05] MEDS ORDERED: WARFARIN SOD 5MG TAB PO ONE (17:00)
[2020-11-05] MEDS: ROSUVASTATIN 10 MG TAB (CRESTOR) PO SCH (20:20)
[2020-11-05] MEDS: MIRTAZAPINE 15 MG TAB PO SCH (20:20)
[2020-11-05 22:00] VITALS: BP 101/57
[2020-11-05] MEDS: ALPRAZolam 0.5 MG TAB PO PRN (22:19)
[2020-11-06] MEDS: LEVOTHYROXINE 137MCG TABLET (0.137MG) PO SCH (05:48)
[2020-11-06 06:00] VITALS: BP 147/73
[2020-11-06 07:09] LABS: HEMATOCRIT 31.3 % (42.0-52.0); HEMOGLOBIN 9.9 g/dl (13.5-17.5); MEAN CORPUSCULAR HGB CONC 31.6 g/dl (32.0-36.5); MEAN CORPUSCULAR VOLUME 91.8 fl (80.0-96.0); PLATELET COUNT, AUTOMATED 263 10^3/uL (150-450); RED BLOOD COUNT 3.41 10^6/uL (4.30-6.10)
[2020-11-06 07:17] LABS: INR 2.05; PROTHROMBIN TIME 23.6 SECONDS (12.5-14.3)
[2020-11-06 07:49] LABS: BLOOD UREA NITROGEN 31 MG/DL (7-18); CALCIUM LEVEL 8.7 MG/DL (8.8-10.2); CARBON DIOXIDE LEVEL 31 MEQ/L (21-32); CHLORIDE LEVEL 107 MEQ/L (98-107); CREATININE FOR GFR 1.01 MG/DL (0.70-1.30); GLOMERULAR FILTRATION RATE > 60.0 (>42); GLUCOSE, FASTING 149 MG/DL (70-100); POTASSIUM SERUM 4.3 MEQ/L (3.5-5.1); SODIUM LEVEL 142 MEQ/L (136-145)
[2020-11-06] MEDS ORDERED: ASCO50TA PO (09:18)
[2020-11-06] MEDS ORDERED: FERR32TA PO (09:18)
[2020-11-06] MEDS: HumaLOG INSULIN (NovoLOG) PER UNIT SC SCH ×2 (09:21→11:53)
[2020-11-06] MEDS: OMEPRAZOLE 20 MG CAP PO SCH (09:21)
[2020-11-06] MEDS: ALPRAZolam 0.5 MG TAB PO PRN (09:22)
[2020-11-06] MEDS: oxyCODONE 10 MG CR TAB PO SCH (09:22)
[2020-11-06] MEDS: MULTIVITAMINS/MINERALS THERAP 1 TAB PO SCH (09:22)
[2020-11-06 09:23] VITALS: BP 127/58
[2020-11-06] MEDS: bisoproloL fumarate 5 MG TAB PO SCH (09:23)
[2020-11-06] MEDS: SERTRALINE 100 MG TAB PO SCH (09:23)
[2020-11-06] MEDS: ASCORBIC ACID 500 MG TAB PO SCH (09:23)
[2020-11-06] MEDS: TAMSULOSIN 0.4 MG CAP PO SCH (09:23)
[2020-11-06] MEDS: ASPIRIN 81MG ENTERIC TABLET PO SCH (09:23)
[2020-11-06] MEDS: FERROUS GLUCONATE 324 MG TAB PO SCH (09:23)
[2020-11-06] MEDS: DIGOXIN 0.125 MG TAB PO SCH (09:23)
[2020-11-06] MEDS: FINASTERIDE 5 MG TAB PO SCH (09:23)
[2020-11-06] MEDS: DICYCLOMINE 10 MG CAP PO SCH (09:24)
--- NOTE | 2020-11-06 12:29 | ECGEPIP ---
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
--- NOTE | 2020-11-06 20:31 | ECGEPIP ---
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
--- NOTE | 2020-11-06 23:29 | DS.PDOC ---
Discharge Summary General Date of Admission Nov 04, 2020 Date of Discharge Nov 06, 2020 Discharge Summary PROCEDURES PERFORMED DURING STAY: None ADMITTING DIAGNOSES: 1. Hyperkalemia 2. Chronic anemia 3. Atrial fibrillation s/p pacemaker 4. Recent aortic valve replacement 5. Hypothyroidism 6. Chronic pain 7. BPH DISCHARGE DIAGNOSES: 1. Hyperkalemia 2. Iron deficiency anemia 3. Atrial fibrillation s/p pacemaker 4. Recent aortic valve replacement 5. Hypothyroidism 6. Chronic pain 7. BPH COMPLICATIONS/CHIEF COMPLAINT: Anemia,Hyperkalemia. HISTORY OF PRESENT ILLNESS: Mr. Thornton is a 75 year old male with atrial fibrillation, hypertension, CKD, and recent aortic valve replacement who presents with abnormal labs. He was recently admitted on 10/18/2020 to 10/20/2020 for AMS and hyperkalemia. His spironolactone was discontinued and valsartan was decreased. He was sent home. At home he was improving mentally, but still was not physically back at baseline. The past few days, he has been feeling more sh ort of breath. He denies fever, cough, or lightheadedness, but would have exhaustion on exertion. He had labs done on Tuesday which demonstrated anemia and hyperkalemia. Patient was instructed to come to the ED. Patient was present in the ED with . Mentally and physically, he is better, but not yet at baseline. Lungs sound clear. Otherwise, he denies any hemoptysis, melena, hematochezia, or changes in color of stool. Patient will be placed in observation for anemia and hyperkalemia HOSPITAL COURSE: Mr. Thornton did respond with the Kayexalate, but potassium randy the next day. Patient had taken Valsartan the morning of admission. He may have needed more time for the medication to wash out. He was given Lasix and potassium decreased. The following day, the potassium did not increase. Other dacosta, patient's hemoglobin spontaneously increased. He may have some iron deficiency, so he was started on iron supplements and vitamin C to help with iron absorption. This morning, he felt well. He felt ready for home and was subsequently discharged home. DISCHARGE MEDICATIONS: Please see below. ALLERGIES: Please see below. PHYSICAL EXAMINATION ON DISCHARGE: VITAL SIGNS: Please see below. GENERAL: Comfortable, in no apparent distress HEENT: Head normocephalic, atraumatic NECK: Supple CARDIOVASCULAR EXAMINATION: Regular rate and rhythm RESPIRATORY EXAMINATION: Lungs clear to auscultation bilaterally ABDOMINAL EXAMINATION: Soft, non-tender, normal bowel sounds EXTREMITIES: No pitting edema bilaterally SKIN: Warm and dry NEUROLOGICAL EXAMINATION: CN 3-12 grossly intact PSYCHIATRIC EXAMINATION: Normal mood and affect LABORATORY DATA: Please see below. IMAGING: Radiologist interpretation CXR Possible small right pleural effusion. PROGNOSIS: Good ACTIVITY: As tolerated. DIET: Consistent carbohydrate DISCHARGE PLAN: Home DISPOSITION: 01 Home, Self-Care. DISCHARGE INSTRUCTIONS: 1. Follow up with PCP within 1 week 2. Do not take Valsartan 3. Discuss with your PCP about switching from Warfarin to Xarelto 4. Take iron pills with vitamin C DISCHARGE CONDITION: Stable. Total time spent on discharge planning, discharge summary, and medication reconciliation: 45 minutes Vital Signs/I&Os Vital Signs Date Time Temp Pulse Resp B/P (MAP) Pulse Ox O2 Delivery O2 Flow Rate FiO2 11/06/20 09:23 63 11/06/20 09:23 127/58 11/06/20 09:22 18 11/06/20 06:00 97.6 98 Room Air I&O- Last 24 Hours up to 6 AM 11/06/20 06:00 Intake Total 1240 ml Output Total 2300 ml Balance -1060 ml Laboratory Data Labs 24H Laboratory Tests 2 11/06/20 06:53: Nucleated Red Blood Cells % (auto) 0.0, Prothrombin Time 23.6H, Prothromb Time International Ratio 2.05, Anion Gap 4L, Glomerular Filtration Rate > 60.0, Calcium Level 8.7L 11/06/20 11:40: Bedside Glucose (Misc Panel) 126H CBC/BMP Laboratory Tests 11/06/20 06:53 FSBS Laboratory Tests Test 11/06/20 11:40 Range/Units Bedside Glucose (Misc Panel) 126 83-110 MG/DL Microbiology Microbiology 11/04/20 Stool Occult Blood (SARAH) - Final, Complete Discharge Medications Scheduled Ascorbic Acid (Vitamin C) 500 Mg Tablet, 500 MG PO DAILY Aspirin (Aspirin EC) 81 Mg Tablet.dr, 81 MG PO DAILY, (Reported) Bisoprolol Fumarate (Bisoprolol Fumarate) 5 Mg Tablet, 10 MG PO DAILY, (Re ported) Dicyclomine HCl (Dicyclomine HCl) 20 Mg Tab, 40 MG PO DAILY, (Reported) Dicyclomine HCl (Dicyclomine HCl) 20 Mg Tablet, 20 MG PO QHS, (Reported) Digoxin (Digoxin) 125 Mcg Tablet, 125 MCG PO DAILY, (Reported) Ferrous Gluconate (Ferrous Gluconate) 324 Mg Tablet, 324 MG PO DAILY Finasteride (Finasteride) 5 Mg Tab, 5 MG PO DAILY, (Reported) Levothyroxine Sodium (Synthroid) 137 Mcg Tablet, 137 MCG PO DAILY, (Reported) Metformin HCl (Metformin HCl ER) 750 Mg Tab, 1,500 MG PO QPM, (Reported) Mirabegron (Myrbetriq) 50 Mg Tab.er.24h, 50 MG PO DAILY, (Reported) Mirtazapine (Mirtazapine) 15 Mg Tab, 15 MG PO QHS, (Reported) Multivitamins (Thera M Plus Tablet) 1 Tab Tab, 1 TAB PO DAILY, (Reported) Omeprazole (Omeprazole) 20 Mg Cap, 20 MG PO DAILY, (Reported) Rosuvastatin Calcium (Crestor) 10 Mg Tab, 10 MG PO QHS, (Reported) Sertraline Hcl (Zoloft) 100 Mg Tablet, 200 MG PO DAILY, (Reported) Tamsulosin HCl (Flomax) 0.4 Mg Cap, 0.8 MG PO DAILY, (Reported) Torsemide (Torsemide) 20 Mg Tab, 10 MG PO DAILY, (Reported) Warfarin Sodium (Warfarin Sodium) 3 Mg Tablet, 3 MG PO QPM, (Reported) Zonisamide (Zonisamide) 100 Mg Cap, 100 MG PO BID, (Reported) TAKE WITH 50MG CAP. TOTAL OF 150MG Zonisamide (Zonisamide) 50 Mg Capsule, 50 MG PO BID, (Reported) TAKE WITH 100MG CAP. TOTAL OF 150MG Scheduled PRN Alprazolam (Xanax) 0.5 Mg Tab, 0.5 MG PO 5XD PRN for ANXIETY, (Reported) Oxycodone HCl (Oxycontin) 20 Mg Tab.er.12h, 20 MG PO QID PRN for PAIN, (Re ported) Oxycodone HCl/Acetaminophen (Oxycodone-Acetaminophen 5-325) 1 Each Tablet, 2 TAB PO Q6H PRN for PAIN, (Reported) Allergies Coded Allergies: Penicillins (Verified Allergy, Intermediate, SWELLING & HIVES, 10/18/20) morphine (Verified Adverse Reaction, Unknown, CONFUSED, 10/18/20) CARLI MCKENZIE DO Nov 06, 2020 23:29
== END 2020-11-06 12:29 | disposition home or self-care (01) | DRG 812 ==
LOC: M ED 14:47 → M ED INP 14:48 → ENRESERV 11-05 12:27 → M MSPAV 11-05 14:08 → OBSVTOIN 11-05 21:17 → INTOOBSV 11-06 06:14 → OBSVTOIN 11-06 06:14
PROVIDERS: ADMIT Internal Medicine; ATTEND Internal Medicine
DX: D50.9 Iron deficiency anemia, unspecified (principal); E87.5 Hyperkalemia; I12.9 Hypertensive chronic kidney disease with stage 1 through stage 4 chronic kidney disease, or unspecified chronic kidney disease; I48.91 Unspecified atrial fibrillation; N18.9 Chronic kidney disease, unspecified; E11.22 Type 2 diabetes mellitus with diabetic chronic kidney disease; E78.5 Hyperlipidemia, unspecified; E03.9 Hypothyroidism, unspecified; G43.909 Migraine, unspecified, not intractable, without status migrainosus; G47.00 Insomnia, unspecified; G47.33 Obstructive sleep apnea (adult) (pediatric); M47.9 Spondylosis, unspecified; N40.0 Benign prostatic hyperplasia without lower urinary tract symptoms; F41.9 Anxiety disorder, unspecified; Z79.01 Long term (current) use of anticoagulants; Z79.82 Long term (current) use of aspirin; Z79.899 Other long term (current) drug therapy; Z95.4 Presence of other heart-valve replacement; Z88.0 Allergy status to penicillin; Z88.5 Allergy status to narcotic agent; Z95.0 Presence of cardiac pacemaker; Z91.19 Patient's noncompliance with other medical treatment and regimen; Z96.649 Presence of unspecified artificial hip joint; Z20.822 Contact with and (suspected) exposure to COVID-19

== ENCOUNTER → 2021-04-22 | Outpatient (CLI) | payer MEDICARE, OTHER ==
[~2021-04-22] MED LIST changes: +ASCO50TA PO; +FERR32TA PO
--- NOTE | 2021-04-22 13:34 | REP ---
INDICATION: CALCULUS OF KIDNEY COMPARISON: None. TECHNIQUE: Supine view of the abdomen and pelvis. FINDINGS: Evaluation of the urinary tract system is incomplete due to significant overlying bowel gas and moderate fecal stasis. No obvious urinary tract calcifications are identified. Skeletal structures demonstrate osteopenia, advanced degenerative changes, chronic levoconvex scoliosis, prior lumbar laminectomy and posterior fixation. Bilateral hip replacement. IMPRESSION: Moderate fecal stasis. No obvious urinary tract calcifications are identified although evaluation is limited. <Electronically signed by Catrachito Salcido > 04/22/21 [id number]
== END ==
LOC: M RAD 13:03
PROVIDERS: ATTEND Urology
DX: N20.0 Calculus of kidney (principal)

== ENCOUNTER → 2021-07-24 | Outpatient (CLI) | payer MEDICARE, OTHER ==
[~2021-07-24] MED LIST changes: +ALPR1TAB3 PO; +AMIT24CA7 PO; +CETI5TAB2 PO; +CLIN150C17 PO; +D31000TA2 PO; +FERR240T PO; +XARE10TA PO
== END ==
LOC: M LABSMTC 10:26
PROVIDERS: ATTEND Anesthesiology
DX: Z01.818 Encounter for other preprocedural examination (principal); Z11.52 Encounter for screening for COVID-19

== ENCOUNTER 2021-07-29 08:06 | Day surgery (SDC) | payer MEDICARE, OTHER ==
[~2021-07-29] VITALS: Ht 188 cm; Wt 108.3 kg
[~2021-07-29 08:06] MED LIST changes: +NS 1,000 ML IV ONE
[2021-07-29] MEDS ORDERED: LIDOCAINE 2% 100MG/5ML SDV (FOR ANES.) As Ordered ONE (09:10)
[2021-07-29] MEDS ORDERED: propofoL 200 MG/20 ML VIAL As Ordered ONE (09:10)
[2021-07-29 09:45] VITALS: BP 141/83
== END 2021-07-29 10:02 | disposition home or self-care (01) ==
LOC: M OPP 08:06
PROVIDERS: ATTEND Internal Medicine Gastroenterology
DX: Z12.11 Encounter for screening for malignant neoplasm of colon (principal); K22.89 Other specified disease of esophagus; K44.9 Diaphragmatic hernia without obstruction or gangrene; R10.13 Epigastric pain; R63.4 Abnormal weight loss; Z79.84 Long term (current) use of oral hypoglycemic drugs; Z79.899 Other long term (current) drug therapy; Z79.891 Long term (current) use of opiate analgesic; Z88.0 Allergy status to penicillin; Z88.5 Allergy status to narcotic agent; Z95.5 Presence of coronary angioplasty implant and graft

== ENCOUNTER → 2021-07-31 | Outpatient (CLI) | payer MEDICARE, OTHER ==
[~2021-07-31] MED LIST changes: -NS 1,000 ML IV ONE
== END ==
LOC: M LABSMTC 12:29
PROVIDERS: ATTEND Anesthesiology
DX: Z01.812 Encounter for preprocedural laboratory examination (principal); Z20.822 Contact with and (suspected) exposure to COVID-19

== ENCOUNTER → 2021-08-17 | Outpatient (CLI) | payer MEDICARE, OTHER | LOC: M LABSMTC 09:32 | PROVIDERS: ATTEND Anesthesiology | DX: Z01.812 Encounter for preprocedural laboratory examination (principal); Z20.822 Contact with and (suspected) exposure to COVID-19 ==

== ENCOUNTER 2021-08-21 09:17 | Day surgery (SDC) | payer MEDICARE, OTHER ==
[~2021-08-21] VITALS: Ht 188 cm; Wt 104.3 kg
[~2021-08-21 09:17] MED LIST changes: +NS 1,000 ML IV ONE
[2021-08-21] MEDS ORDERED: propofoL 200 MG/20 ML VIAL As Ordered ONE (09:36)
[2021-08-21] MEDS ORDERED: LIDOCAINE 2% 100MG/5ML SDV (FOR ANES.) As Ordered ONE (09:36)
[2021-08-21 10:52] VITALS: BP 131/73
== END 2021-08-21 11:05 | disposition home or self-care (01) ==
LOC: M OPP 09:17
PROVIDERS: ATTEND Internal Medicine Gastroenterology
DX: Z12.11 Encounter for screening for malignant neoplasm of colon (principal); K64.0 First degree hemorrhoids; K59.00 Constipation, unspecified; Z79.82 Long term (current) use of aspirin; Z79.84 Long term (current) use of oral hypoglycemic drugs; Z79.891 Long term (current) use of opiate analgesic; Z79.899 Other long term (current) drug therapy; Z88.5 Allergy status to narcotic agent; Z95.4 Presence of other heart-valve replacement; Z95.0 Presence of cardiac pacemaker

== ENCOUNTER → 2022-02-12 | Outpatient (REF) | payer MEDICARE, OTHER ==
[~2022-02-12] MED LIST changes: -D31000TA2 PO; -NS 1,000 ML IV ONE; +VITA100093 PO; -ZONI100C17 PO; +ZONI100C67 PO
[2022-02-12 17:30] LABS: BLOOD UREA NITROGEN 25 MG/DL (7-18); CALCIUM LEVEL 9.7 MG/DL (8.8-10.2); CARBON DIOXIDE LEVEL 32 MEQ/L (21-32); CHLORIDE LEVEL 104 MEQ/L (98-107); GLOMERULAR FILTRATION RATE > 60.0 (>42); GLUCOSE, FASTING 211 MG/DL (70-100); POTASSIUM SERUM 4.3 MEQ/L (3.5-5.1); SODIUM LEVEL 140 MEQ/L (136-145)
== END ==
LOC: M LABWUC 15:57
PROVIDERS: ATTEND Physician Assistant
DX: I50.32 Chronic diastolic (congestive) heart failure (principal)

== ENCOUNTER → 2022-10-18 | Outpatient (REF) | payer MEDICARE, OTHER ==
[~2022-10-18] MED LIST changes: -OXYC-405 PO; +OXYC40TA40 PO
== END ==
LOC: M LAB REF 16:18
PROVIDERS: ATTEND Internal Medicine
DX: I48.21 Permanent atrial fibrillation (principal)

== ENCOUNTER → 2023-02-09 | Outpatient (REF) | payer MEDICARE, OTHER | LOC: M LAB REF 12:52 | PROVIDERS: ATTEND Podiatrist | DX: L03.031 Cellulitis of right toe (principal) ==

== ENCOUNTER → 2023-03-16 | Outpatient (CLI) | payer MEDICARE, OTHER | LOC: M PLAIMG 11:02 | PROVIDERS: ATTEND Urology | DX: R31.21 Asymptomatic microscopic hematuria (principal); N20.0 Calculus of kidney ==

== ENCOUNTER → 2023-05-27 | Outpatient (REF) | payer MEDICARE, OTHER | LOC: M LAB REF 16:22 | PROVIDERS: ATTEND Internal Medicine | DX: I48.21 Permanent atrial fibrillation (principal) ==

== ENCOUNTER → 2023-09-28 | Outpatient (CLI) | payer MEDICARE, OTHER ==
[~2023-09-28] MED LIST changes: +ISOVUE-370 76% 100ML VIAL ONE
== END ==
LOC: M PLAIMG 12:58
PROVIDERS: ATTEND Psychiatry & Neurology Neurology
DX: R51.9 Headache, unspecified (principal)
CPT/HCPCS: 70470; Q9967

== ENCOUNTER → 2024-02-27 | Outpatient (CLI) | payer MEDICARE, OTHER ==
[~2024-02-27] MED LIST changes: -ISOVUE-370 76% 100ML VIAL ONE
== END ==
LOC: M RAD 12:32
PROVIDERS: ATTEND Thoracic Surgery (Cardiothoracic Vascular Surgery)
DX: I71.21 Aneurysm of the ascending aorta, without rupture (principal)

== ENCOUNTER → 2024-02-29 | Outpatient (REF) | payer MEDICARE, OTHER | LOC: M LAB REF 16:23 | PROVIDERS: ATTEND Internal Medicine | DX: I50.32 Chronic diastolic (congestive) heart failure (principal); I48.21 Permanent atrial fibrillation ==

== ENCOUNTER → 2024-05-28 | Outpatient (REF) | payer MEDICARE, OTHER | LOC: M LAB REF 16:16 | PROVIDERS: ATTEND Student in an Organized Health Care Education/Training Program | DX: R30.0 Dysuria (principal) ==

== ENCOUNTER → 2024-07-31 | Outpatient (CLI) | payer MEDICARE, OTHER ==
[2024-07-31 20:00] LABS: BASO % 0.3 % (0.0-1.0); EOS # 0.3 10^3/uL (0.0-0.5); EOS % 4.9 % (0.0-3.0); HEMATOCRIT 43.8 % (42.0-52.0); HEMOGLOBIN 13.9 g/dl (13.5-17.5); LYMPH % 14.7 % (24.0-44.0); MEAN CORPUSCULAR HGB CONC 31.7 g/dl (32.0-36.5); MEAN CORPUSCULAR VOLUME 91.4 fl (80.0-96.0); MONO # 0.7 10^3/uL (0.0-0.8); MONO % 9.6 % (2.0-8.0); NEUTROPHILS # 4.9 10^3/uL (1.5-8.5); NEUTROPHILS % 70.4 % (36.0-66.0); PLATELET COUNT, AUTOMATED 130 10^3/uL (150-450); RED BLOOD COUNT 4.79 10^6/uL (4.30-6.10); WHITE BLOOD COUNT 6.9 10^3/uL (4.0-10.0)
[2024-07-31 20:18] LABS: BLOOD UREA NITROGEN 29 MG/DL (9-23); CALCIUM LEVEL 9.5 MG/DL (8.3-10.6); CARBON DIOXIDE LEVEL 30 MMOL/L (20-31); CHLORIDE LEVEL 102 MMOL/L (98-107); CREATININE FOR GFR 1.01 MG/DL (0.70-1.30); GLOMERULAR FILTRATION RATE > 60.0 (>42); GLUCOSE, FASTING 232 MG/DL (74-106); POTASSIUM SERUM 4.6 MMOL/L (3.5-5.1); SODIUM LEVEL 140 MMOL/L (136-145)
== END ==
LOC: M WUC 14:58
PROVIDERS: ATTEND Physician Assistant
DX: J22 Unspecified acute lower respiratory infection (principal)

== ENCOUNTER → 2024-10-25 | Outpatient (REF) | payer MEDICARE, OTHER ==
[~2024-10-25] MED LIST changes: -AMIT24CA7 PO; +LUBI24CA32 PO
== END ==
LOC: M LAB REF 14:21
PROVIDERS: ATTEND Internal Medicine
DX: I48.0 Paroxysmal atrial fibrillation (principal)

== ENCOUNTER → 2025-04-16 | Outpatient (CLI) | payer MEDICARE, OTHER ==
[~2025-04-16] MED LIST changes: +ALPR-516 PO; -ALPR1TAB6 PO; -FLOM0.4C39 PO; +TAMS-18 PO
== END ==
LOC: M WUC 13:19
PROVIDERS: ATTEND Nurse Practitioner Family
DX: R06.2 Wheezing (principal); Z95.2 Presence of prosthetic heart valve; Z95.810 Presence of automatic (implantable) cardiac defibrillator

== ENCOUNTER → 2025-05-07 | Outpatient (CLI) | payer MEDICARE, OTHER | LOC: M PLAIMG 11:59 | PROVIDERS: ATTEND Physician Assistant | DX: I71.21 Aneurysm of the ascending aorta, without rupture (principal) ==

== ENCOUNTER → 2025-06-17 | Outpatient (REF) | payer MEDICARE, OTHER ==
[~2025-06-17] MED LIST changes: +ASCO500C3 PO; +CRES40TA PO; +FREM225A; +JARD1TAB PO; +LEVO137T2 PO; +LUBI24CA PO; +MAGN400T35 PO; +METF-838 PO; +MIRT-10 PO; +MIRT1TAB PO; +MULT-90 PO; +OXYC-141 PO; -OXYC40TA40 PO; +OXYC40TA41 PO; +SEMA0.257; +TAMS1CAP17 PO; +XARE20TA PO
== END ==
LOC: M LAB REF 14:43
PROVIDERS: ATTEND Physician Assistant
DX: Z95.0 Presence of cardiac pacemaker (principal)

== ENCOUNTER → 2025-06-18 | Outpatient (CLI) | payer MEDICARE, OTHER ==
[2025-06-18 15:40] LABS: PLATELET COUNT, AUTOMATED 168 10^3/uL (150-450)
[2025-06-18 16:02] LABS: CALCIUM LEVEL 9.3 MG/DL (8.3-10.6); CARBON DIOXIDE LEVEL 33.0 MMOL/L (20-31); CHLORIDE LEVEL 103.0 MMOL/L (98-107); CREATININE FOR GFR 0.94 MG/DL (0.70-1.30); GLOMERULAR FILTRATION RATE 82.5 (>42); POTASSIUM SERUM 4.3 MMOL/L (3.5-5.1); SODIUM LEVEL 146.0 MMOL/L (136-145)
== END ==
LOC: M LAB 14:45
PROVIDERS: ATTEND Physician Assistant
DX: Z95.0 Presence of cardiac pacemaker (principal); Z79.899 Other long term (current) drug therapy

== ENCOUNTER 2025-06-26 12:32 | Day surgery (SDC) | payer MEDICARE, OTHER ==
[~2025-06-26] VITALS: Ht 188 cm; Wt 103.1 kg
[2025-06-26] MEDS ORDERED: LIDOCAINE 2% 100 MG/5 ML SDV (FOR ANES.) As Ordered ONE (12:43)
[2025-06-26] MEDS ORDERED: ONDANSETRON 4MG/2ML VIAL As Ordered ONE (12:43)
[2025-06-26] MEDS ORDERED: dexAMETHasone 4 MG/ML 1 ML VIAL As Ordered ONE (12:43)
[2025-06-26] MEDS: LR 1,000 ML IV SCH (13:30)
[2025-06-26] MEDS ORDERED: MIDAZOLAM INJ 2 MG/2 ML VIAL As Ordered ONE (13:44)
[2025-06-26] MEDS ORDERED: ACETAMINOPHEN 1000MG/100ML IV BAG As Ordered ONE (15:01)
[2025-06-26] MEDS: ceFAZolin SOD 2 GM IV ONCE IV ONE (15:19)
[2025-06-26] MEDS: LIDOCAINE 1% SDV 30 ML VIAL As Ordered ONE (15:36)
[2025-06-26] MEDS ORDERED: dexmedeTOMIDine (4 MCG/ML) 200 MCG/50 ML BTL As Ordered ONE (15:40)
[2025-06-26 16:23] VITALS: BP 136/67; TEMP 97.2; O2SAT 96
== END 2025-06-26 16:40 | disposition home or self-care (01) ==
LOC: M SDC 12:32
PROVIDERS: ATTEND Internal Medicine Cardiovascular Disease
DX: Z45.010 Encounter for checking and testing of cardiac pacemaker pulse generator [battery] (principal); I44.0 Atrioventricular block, first degree; I48.21 Permanent atrial fibrillation; Z95.2 Presence of prosthetic heart valve; I44.7 Left bundle-branch block, unspecified; Z79.899 Other long term (current) drug therapy
CPT/HCPCS: 33227; C1786; J0131; J0688; J2250; J2405; J3010